=== PATIENT | female | born 1985 | race Caucasian/White ===

== ENCOUNTER 2020-01-31 01:29 | Emergency (ER) | payer SELFPAY ==
[2020-01-31 01:47] VITALS: BP 131/88; BP 136/80; PULSE 108; PULSE 120; RESP 16; TEMP 35.9; O2SAT 98; BMI 44.9
--- NOTE | 2020-01-31 02:10 | PC.NURSE ---
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 pt states she got into a small argument with spouse and feels better now. states she will have a ride home
--- NOTE | 2020-01-31 02:21 | ED_ITS ---
HPI - Alcohol General Chief Complaint: ETOH/Substance Use Stated Complaint: ETOH Time Seen by Provider: 01/31/20 02:21 Source: EMS Mode of arrival: ambulatory History of Present Illness HPI narrative: 34-year-old female brought to the emergency room after not acting right drinking alcohol. Patient in the emergency room states has no complaints no nausea no vomiting no diarrhea no chest pain. Related Data Allergies Allergy/AdvReac Type Severity Reaction Status Date / Time No Known Allergies Allergy Unverified 01/31/20 01:52 [No Known Allergies*] Review of Systems Review of Systems: Constitutional : No Weight loss, No Fever, No Chills, No Night Sweats, No Fatigue, No Malaise ENT/Mouth : No Hearing loss, No Ear Pain, No Nasal Congestion, No Sinus Pain, No Hoarseness, No sore throat, No Rhinorrhea, No Swallowing Difficulty Eyes: No Eye Pain, No Swelling, No Redness, No Foreign Body, No Discharge, No Vision Changes Cardiovascular : No Chest Pain, No SOB, No Dyspnea on Exertion, No Orthopnea, No Edema, No Palpitations Respiratory : No Cough, No Sputum, No Wheezing, No Smoke Exposure, No Dyspnea Gastrointestinal : No Nausea, No Vomiting, No Diarrhea, No Constipation, No abdominal Pain, No Hematochezia, No Melena Genitourinary : no irregular bleeding, No Dysuria, No Urinary Frequency, No Hematuria, No Urinary Incontinence, No Urgency, No Flank Pain, No Urinary Flow Changes, No Hesitancy Musculoskeletal : No joint pain, No Myalgias, No Joint Swelling Skin : No Skin Lesions, No rash Neuro : No Weakness, No Numbness, No Paresthesias, No Loss of Consciousness, No Dizziness, No Headache Psych : No Anxiety/Panic, No Depression, No SI/HI/AH/VH, No Social Issues, Heme/Lymph: No Bruising, No Bleeding,No Lymphadenopathy Endocrine : No Polyuria, No Polydipsia, No Temperature Intolerance [facility] Past Medical History Medical History GERD (gastroesophageal reflux disease) Family History Family History (Updated 01/31/20 @ 05:18 by Jacob Fischer DO) Other Family history non-contributory Social History Social History Advance Directives: No Advance Directives Information Provided: No Physical Exam Vital Signs and I&O and Narrative: Vital Signs and I&O: Vital Signs Temp 96.6 F L 01/31/20 01:47 Pulse 108 H 01/31/20 01:47 Resp 16 01/31/20 01:47 BP 131/88 01/31/20 01:47 Pulse Ox 98 01/31/20 01:47 Intake & Output 01/30/20 01/30/20 01/31/20 06:59 18:59 06:59 Weight 104.326 kg Body Mass Index 44.9 vital signs reviewed vital signs reviewed Appearance: Alert. Oriented X3. No acute distress. Eyes: Pupils equal, round and reactive to light. ENT: Pharynx normal. Neck: Normal inspection. Neck supple. No lymph nodes noted. No crepitus CVS: Normal heart rate and rhythm. Pulses normal. Normal S1 and S2 Respiratory: No respiratory distress. Breath sounds normal. No Wheezing. No rales Abdomen: Soft and nontender. No rigidity. No distention. good BS x4 Skin: Skin warm and dry. Normal skin color. Normal skin turgor. Extremities: No lower extremity edema. Neurovascular intact to all extremities. No Lacerations. No Rash Neuro: Oriented X 3. No motor deficit. No sensory deficit. Moving all extermities. No slurred speech. Course Course Course Narrative: upon arrival to the emergency department patient want to leave. Patient was alert oriented x3. Not intoxicated. Walking without assistance. Tolerating p.o. intake. Patient did have a ride home however patient did not want wait for paperwork and eloped Discharge Plan Discharge Clinical Impression: Alcoholic intoxication Patient Disposition: Elopement Referrals: [facility] [Provider Group] - 2 days Interventions: ED Discharge Assessment Last Done: 01/31/20 05:34 Discharge Date/Time: 01/31/20 05:37
== END 2020-01-31 05:37 | disposition left against medical advice (07) ==
PROVIDERS: Emergency Provider Emergency Medicine
DX: F10.129 Alcohol abuse with intoxication, unspecified (principal); Y90.9 Presence of alcohol in blood, level not specified; Z71.41 Alcohol abuse counseling and surveillance of alcoholic
CPT/HCPCS: 99283; 99284

== ENCOUNTER 2022-06-26 12:48 | Outpatient (REF) | payer MEDICAID, SELFPAY | END 2022-06-26 12:49 | disposition home or self-care (01) | LOC: HO.HOSX 12:48 | PROVIDERS: Visit Provider Physician Assistant | DX: Z13.89 Encounter for screening for other disorder (principal) ==

== ENCOUNTER 2022-07-03 15:58 | Outpatient (REF) | payer MEDICAID, SELFPAY | END 2022-07-03 15:59 | disposition home or self-care (01) | LOC: HO.HOSX 15:58 | PROVIDERS: Visit Provider Physician Assistant | DX: Z13.89 Encounter for screening for other disorder (principal) ==

== ENCOUNTER 2024-07-12 12:06 | Emergency (ER) | payer MEDICAID, SELFPAY ==
--- NOTE | ~2024-07-12 | CT_ITS ---
CLINICAL HISTORY: right flank pain. CT abdomen and pelvis without contrast Comparison: None Findings: No consolidation or effusion. And axial image 75 and coronal image 54, there is a tiny calculus in the region of the right ureterovesicular junction which may be within the ureter. This is not definitive. There is no hydronephrosis bilaterally. No renal calculus. The unenhanced liver, spleen, gallbladder, adrenal glands and pancreas are unremarkable No bowel obstruction, free air or abscess. Normal appendix. Uterus and adnexa are within normal limits. 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 No significant anterolisthesis of L5 with respect to S1 Impression: There is a tiny calculus within the pelvis in the region of the right ureterovesicular junction which may be within the ureter however there is no significant hydronephrosis identified. Otherwise no acute process. 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
--- NOTE | ~2024-07-12 | XR_ITS ---
CLINICAL HISTORY: cough 1 view chest x-ray Comparison: CR/RI/SR - XR CHEST 2V - 01/19/24 17:31 EDT Findings: No consolidation or effusion. Mild elevation of the left hemidiaphragm. No consolidative process. Normal size heart. No acute fracture. IMPRESSION: Mildly elevated left hemidiaphragm. This document has been electronically signed by: Dilcia Snyder MD on 07/12/2024 14:54:51
[2024-07-12 12:08] VITALS: BP 149/107; PULSE 111; RESP 20; TEMP 37; O2SAT 99; BMI 24.6
--- NOTE | 2024-07-12 12:09 | ED_ITS ---
HPI - Abdominal Pain General Chief Complaint: Abdominal Pain Stated Complaint: abd pain, back pain Time Seen by Provider: 07/12/24 13:44 Source: patient, family and senior director creative services Mode of arrival: ambulatory Limitations: no limitations History of Present Illness ED Provider: DR. Pizano HPI narrative: 38-year-old female came in for evaluation abdominal pain x4 days pain is epigastric and lower abdomen radiates to both flank area, no nausea, no vomiting, normal bowel movement, passing flatus, never had intra-abdominal surgery, no dysuria, no frequency urination, no hematuria, no exposure to a sick contacts. Patient also has been complaining coughing, and dizziness. Related Data Previous Rx's ?Medication ?Instructions ?Recorded ciprofloxacin HCl 500 mg tablet 500 mg PO BID Foot puncture wound 06/08/22 (Cipro) 14 days #28 tabs cyclobenzaprine 10 mg tablet 10 mg PO Q8H #14 tabs 06/08/22 naproxen 500 mg tablet 500 mg PO BID PRN pain #14 tabs 06/08/22 albuterol sulfate 2.5 mg/3 mL 2.5 mg (3 mL) inhalation Q4H PRN 06/11/22 (0.083 %) solution for nebulization shortness of breath or wheezing #75 mL albuterol sulfate 90 mcg/actuation 2 puff inhalation Q4-6H PRN 06/11/22 aerosol inhaler shortness of breath or wheezing #8.5 grams benzonatate 100 mg capsule 100 mg PO TID PRN cough #14 caps 06/11/22 doxycycline hyclate 100 mg tablet 100 mg PO BID 7 days #14 tabs 06/11/22 prednisone 20 mg tablet 60 mg (3 x 20 mg) PO DAILY 5 days 06/11/22 #15 tabs ibuprofen 600 mg tablet 600 mg PO Q6H PRN fever or pain 08/12/22 #20 tabs Allergies Allergy/AdvReac Type Severity Reaction Status Date / Time No Known Allergies Allergy Unverified 07/12/24 12:13 [No Known Allergies*] Review of Systems Review of Systems All other systems are reviewed and are negative Constitutional: Reports as per HPI and Reports no additional constitutional complaints Eyes: Reports as per HPI and Reports no additional eye complaints Reports system reviewed and no additional complaints, except as documented Cardiovascular: Reports as per HPI and Reports no additional cardiovascular complaints Respiratory: Reports as per HPI and Reports no additional respiratory complaints Gastrointestinal: Reports as per HPI and Reports no additional gastrointestinal complaints Genitourinary: Reports no additional female genitourinary complaints Musculoskeletal: Reports no additional musculoskeletal complaints Skin/Breast: Reports system reviewed and no additional complaints, except as docu Psychiatric: Reports no additional psychiatric complaints Endocrine: Reports no additional endocrine complaints Hematologic/Lymphatic: Reports no additional hematologic/lymphatic complaints Allergic/Immunologic: Reports no additional allergic/immunologic complaints Reports system reviewed and no additional complaints, except as documented and Reports Abnormal speech present [facility] Past Medical History Medical History GERD (gastroesophageal reflux disease) Family History Family History Other Family history non-contributory Physical Exam ED Vital Signs: Vital Signs - 24 hr 07/12/24 12:08 07/12/24 14:04 Temperature 98.6 F Pulse Rate 111 H 86 Respiratory Rate 20 18 Blood Pressure 149/107 H 134/87 Pulse Oximetry 99 99 Oxygen Delivery Method Room Air Room Air BMI result Body Mass Index 24.6 Vital signs have been reviewed and appear to be correct. Blood pressure elevated. Heart rate normal. Respiratory rate normal. Temperature normal. Oxygen saturation normal. Appearance: Alert. Oriented X3. No acute distress. Head: Normal external exam. Normocephalic. Atraumatic. No Redd signs noted. No raccoon eyes noted Eyes: PERRLA. EOMI. Conjunctiva and sclera normal. Eyelids normal. ENT: TM's Normal. Pharynx normal. Uvula midline. Moist mucous membranes. No trismus noted. No drooling noted. No muffled voice noted. Neck: Normal inspection. Neck supple. FROM. No adenopathy. Thyroid Normal. No meningeal signs. No neck mass noted. CVS: Normal heart rate and rhythm. Heart sound normal. No murmurs noted. Pulses normal throughout. Respiratory: No respiratory distress. Painless inspiration. Breath sounds normal. No wheezes/rales/rhonchi noted. Chest nontender. No accessory muscle usage noted or decreased air movement noted. Abdomen: Soft and nontender. Bowel sounds normal in all 4 quadrants. No distention noted. No organomegaly noted. No visible injury noted. Back: No CVA tenderness. Full range of motion noted. Skin: Skin warm and dry. Normal skin color. Normal skin turgor. No rashes/lesions/lacerations noted. Extremities: No lower extremity edema. Extremities exhibit normal range of motion. Extremities nontender. Neuro: Oriented X 3. Cranial nerve exam: II-XII are grossly intact No motor deficit. No sensory deficit. Reflexes normal. Course Course Course Narrative: This is an RME performed by Roddy Shannon CNP: Additional HPI, ROS, PE not included below will be deferred to primary provider. patient is a 38-year-old female who presents emergency department for evaluation of abdominal pain endorses epigastric, mid lower abdomen right lower quadrant pain as well as diffuse lower back pain. Pain has been constant over the past 3 days. Associated nausea but no vomiting. No bowel movement over the past 3 days. Endorses associated dysuria. Admits to a recent vaginal yeast infection approximately 2 months ago. denies possibility for , LMP last week. Plan: Serum labs, urinalysis Reevaluation(s) Reevaluation #1: CT is questioning small right UVJ stone with no hydro or significant obstruction, patient can be discharged home with instruction of drinking plenty of fluids and NSAIDs p.r.n. pain. Time: 16:00 Medical Decision Making Differential Diagnosis Differential Diagnoses: The differential diagnosis associated with the presentation includes (Pneumonia, pneumothorax, pulmonary embolism acute appendicitis, kidney stone, UTI, pyelonephritis, , gastritis.) Admission/Observation Consideration of admission/observation: Escalation of care including admission/observation considered Lab Data MDM Lab Attestation statement: I reviewed the patient's lab results. 07/12/24 12:21 07/12/24 12:21 Labs: Lab Results 07/12/24 07/12/24 Range/Units 12:21 14:05 WBC 10.8 (4.8-10.8) X10*3/uL RBC 5.14 (4.20-5.50) X10*6/uL Hgb 14.6 (12.0-16.0) g/dl Hct 42.5 (37.0-47.0) % MCV 82.7 (80.0-98.0) fL MCH 28.4 (27.0-33.0) pg MCHC 34.4 (31.0-35.0) g/dl RDW 14.0 (11.0-16.0) % Plt Count 514 H (160-400) X10*3/uL MPV 8.7 L (9.4-12.3) fL Immature Gran % (Auto) 0.3 (0.0-0.4) % Neut % (Auto) 53.3 (45-73) % Lymph % (Auto) 39.4 (20-40) % [place] % (Auto) 5.4 (2-11) % Eos % (Auto) 0.9 (0-4) % Baso % (Auto) 0.7 (0-2) % Lymph # (Auto) 4.3 (1.2-4.9) X10*3/uL [place] # (Auto) 0.6 (0.1-1.2) X10*3/uL Eos # (Auto) 0.1 (0.0-0.4) X10*3/uL Baso # (Auto) 0.1 (0.0-0.2) X10*3/uL Abs Immat Gran (auto) 0.03 (0.00-0.03) X10*3/uL Absolute Neuts (auto) 5.8 (2.0-8.3) x10*3/uL Absolute Nucleated RBC 0.000 (0.0-0.012) X10*3/uL Nucleated RBC % (auto) 0.0 (0.0-0.2) /100WBC D-Dimer High Sensitivty < 150 NG/ML Sodium 134 L (135-145) mmol/L Potassium 4.1 (3.3-5.1) mmol/L Chloride 104 (96-108) mmol/L Carbon Dioxide 22 (22-29) mmol/L Anion Gap 12 (12-20) BUN 8 L (9-16) mg/dL Creatinine 0.65 (0.5-1.4) mg/dL Estim Creat Clear Calc 107.7 Estimated GFR > 60 Random Glucose 151 H (60-115) mg/dL Calcium 9.3 (8.4-10.2) mg/dL Total Bilirubin 0.2 (0.0-1.0) mg/dL AST 12 (5-31) U/L ALT 12 (0-31) U/L Alkaline Phosphatase 57 (39-117) U/L Total Protein 8.5 H (6.5-8.0) g/dL Albumin 4.5 (3.5-5.0) g/dL Lipase 37 (8-78) U/L Beta HCG, Quant < 2 mIU/mL Urine Color Yellow Urine Appearance Clear Urine pH 5.5 (5.0-9.0) Ur Specific [place] 1.015 (1.005-1.025) Urine Protein Negative (Neg-Trace) mg/dL Urine Glucose (UA) Negative (Negative) mg/dL Urine Ketones Negative (Negative) mg/dL Urine Blood Trace H (Negative) Urine Nitrite Negative (Negative) Ur Leukocyte Esterase Negative (Negative) Urine RBC 0-2 (0-2) /HPF Urine WBC 0-5 (0-5) /HPF Ur Squamous Epith Cells 0-2 (0-2) /HPF Urine Bacteria None Seen (None Seen) Hyaline Casts 0-2 (0-2) /LPF Urine Test NEGATIVE (NEGATIVE) Independent Interpretation I performed an independent interpretation of an: CT Scan (Abdomen pelvis:There is a tiny calculus within the pelvis in the region of the right ureterovesicular junction which may be within the ureter however there is no significant hydronephrosis identified. Otherwise no acute process.) Radiology Impression Discussion of test interpretation with radiology: I have reviewed the radiologist's reading. Medications Administered Discontinued Medications Generic Name Dose Route Start Last Admin Trade Name Freq PRN Reason Stop Dose Admin Ibuprofen 600 mg 07/12/24 14:02 07/12/24 14:47 Ibuprofen 600 Mg Tablet PO 07/12/24 14:03 600 mg ONCE ONE Administration Oxycodone HCl 5 mg 07/12/24 14:02 07/12/24 14:47 Oxycodone Hcl Immed Release 5 Mg Tablet PO 07/12/24 14:03 5 mg ONCE ONE Administration Discharge Plan Discharge Clinical Impression: Renal colic, Calculus of kidney Patient Disposition: Home, Self-Care Instructions: Renal Colic (ED) Prescriptions: No Action doxycycline hyclate 100 mg tablet 100 mg PO BID 7 Days Qty: 14 0RF prednisone 20 mg tablet 60 mg PO DAILY 5 Days Qty: 15 0RF albuterol sulfate 90 mcg/actuation HFA aerosol inhaler 2 puff inhalation Q4-6H PRN (Reason: shortness of breath or wheezing) Qty: 8.5 0RF albuterol sulfate 2.5 mg /3 mL (0.083 %) solution for nebulization 2.5 mg inhalation Q4H PRN (Reason: shortness of breath or wheezing) Qty: 75 0RF benzonatate 100 mg capsule 100 mg PO TID PRN (Reason: cough) Qty: 14 0RF ciprofloxacin HCl [Cipro] 500 mg tablet 500 mg PO BID 14 Days Qty: 28 0RF naproxen 500 mg tablet 500 mg PO BID PRN (Reason: pain) Qty: 14 0RF cyclobenzaprine 10 mg tablet 10 mg PO Q8H Qty: 14 0RF ibuprofen 600 mg tablet 600 mg PO Q6H PRN (Reason: fever or pain) Qty: 20 0RF Referrals: Indira Becerra SHOE CUTTER [Primary Care Provider] - Print Language: British
[2024-07-12 12:25] LABS: MANUAL DIFF FLAG NO
[2024-07-12 12:29] LABS: Appearance Urine Clear; Color Urine Yellow; Glucose Urine UA Negative (Negative); Leukocyte Esterase Urine Negative (Negative); Nitrite Urine Negative (Negative); PH 5.5 (5.0-9.0); Specific Gravity - Urine 1.015 (1.005-1.025); UMIC TRIGGER UACC YES; Urine Blood Trace (Negative); Urine Ketones Negative (Negative); Urine Protein Negative (Neg-Trace)
[2024-07-12 12:34] LABS: Bacteria Urine None Seen (None Seen); Hyaline Casts Urine 0-2 /LPF (0-2); RBC Urine 0-2 /HPF (0-2); Squamous Epithelial Cell Urine 0-2 /HPF (0-2); WBC Urine 0-5 /HPF (0-5)
[2024-07-12 12:48] LABS: Alanine Aminotransferase 12 U/L (0-31); Albumin Level 4.5 g/dL (3.5-5.0); Alkaline Phosphatase 57 U/L (39-117); Anion Gap 12 (12-20); Aspartate Amino Transferase 12 U/L (5-31); Bilirubin Total 0.2 mg/dL (0.0-1.0); Blood Urea Nitrogen 8 mg/dL (9-16); Calcium 9.3 mg/dL (8.4-10.2); Carbon Dioxide 22 mmol/L (22-29); Chloride 104 mmol/L (96-108); Creatinine Clr Calc Pharmacy 107.7; Estimated Glomerular Filt Rate > 60; Glucose Random 151 mg/dL (60-115); Lipase 37 U/L (8-78); Potassium 4.1 mmol/L (3.3-5.1); Sodium 134 mmol/L (135-145); Total Protein 8.5 g/dL (6.5-8.0)
[2024-07-12 12:52] LABS: Basophils Absolute Auto 0.1 X10*3/uL (0.0-0.2); Basophils Percent Auto 0.7 % (0-2); Eosinophils Absolute Auto 0.1 X10*3/uL (0.0-0.4); Eosinophils Percent Auto 0.9 % (0-4); Hematocrit 42.5 % (37.0-47.0); Hemoglobin 14.6 g/dl (12.0-16.0); Imm Gran Abs Auto 0.03 X10*3/uL (0.00-0.03); Imm Gran Pct Auto 0.3 % (0.0-0.4); Lymphocytes Absolute Auto 4.3 X10*3/uL (1.2-4.9); Lymphocytes Percent Auto 39.4 % (20-40); Mean Corpuscular HGB Conc 34.4 g/dl (31.0-35.0); Mean Corpuscular Hemoglobin 28.4 pg (27.0-33.0); Mean Corpuscular Volume 82.7 fL (80.0-98.0); Mean Platelet Volume 8.7 fL (9.4-12.3); Monocytes Absolute Auto 0.6 X10*3/uL (0.1-1.2); Monocytes Percent Auto 5.4 % (2-11); Neutrophils Absolute Auto 5.8 x10*3/uL (2.0-8.3); Neutrophils Percent Auto 53.3 % (45-73); Platelet Count 514 X10*3/uL (160-400); Red Blood Count 5.14 X10*6/uL (4.20-5.50); White Blood Count 10.8 X10*3/uL (4.8-10.8)
[2024-07-12 14:04] VITALS: BP 134/87; PULSE 86; RESP 18; O2SAT 99
[2024-07-12 14:26] LABS: D Dimer High Sensitivity < 150 NG/ML
[2024-07-12 14:44] LABS: UPreg QC Valid YES; Urine Pregnancy NEGATIVE (NEGATIVE)
[2024-07-12] MEDS: Ibuprofen 600 MG TABLET PO (14:47)
[2024-07-12] MEDS: oxyCODONE HCl Immed Release 5 MG TABLET PO (14:47)
[2024-07-12 14:58] LABS: HCG Quantitative < 2 mIU/mL
[2024-07-12 16:03] VITALS: BP 128/85; PULSE 73; RESP 16; TEMP 36.8; O2SAT 97
[2024-07-12 16:12] VITALS: BP 128/85; PULSE 73; RESP 16; TEMP 36.8; O2SAT 97
== END 2024-07-12 16:13 | disposition home or self-care (01) ==
PROVIDERS: Nurse Practitioner Family; Physician Assistant; Emergency Provider Emergency Medicine; PCP Nurse Practitioner Family
DX: N20.0 Calculus of kidney (principal); R05.9 Cough, unspecified; R42 Dizziness and giddiness; Z79.899 Other long term (current) drug therapy
CPT/HCPCS: 36415; 71045; 74176; 80053; 81001; 81025; 83690; 84702; 85025; 85379; 99284

== ENCOUNTER → 2024-07-12 14:18 | Outpatient (BNV) | payer MEDICAID, SELFPAY | PROVIDERS: Emergency Provider Emergency Medicine; PCP Nurse Practitioner Family; Visit Provider Radiology Diagnostic Radiology | DX: N20.1 Calculus of ureter (principal); R05.9 Cough, unspecified | CPT/HCPCS: 71045; 74176 ==

== ENCOUNTER 2024-10-13 08:38 | Outpatient (REF) | payer MEDICAID, SELFPAY ==
--- OUTSIDE RECORDS SUMMARY | 2024-10-13 08:56 | XMS_ITS ---
Author Organization [employer] Address [address] [place] [address] Care Team Providers Care Spinner Continuous Name Role Phone Indira Becerra NP Primary Care Provider [phone] Rossana Ceja RN Unavailable [phone] CM Complex Status:Enrolled (Active) Start date:07/14/2024 Enrollment date:08/07/2024 Enrollment reason:ADT Feed Overview ED- Pt went to [facility] ED on 07/12/24. Case Team Name Relationship Phone Rossana Ceja RN(Responsible Staff) Registered Nurse [phone] Continued Care and Services Coordination
[2024-10-13 11:48] LABS: Alanine Aminotransferase 13 U/L (0-31); Albumin Level 4.5 g/dL (3.5-5.0); Alkaline Phosphatase 49 U/L (39-117); Anion Gap 14 (12-20); Aspartate Amino Transferase 14 U/L (5-31); Bilirubin Total 0.2 mg/dL (0.0-1.0); Blood Urea Nitrogen 8 mg/dL (9-16); Calcium 9.3 mg/dL (8.4-10.2); Carbon Dioxide 23 mmol/L (22-29); Chloride 107 mmol/L (96-108); Estimated Glomerular Filt Rate > 60; Glucose Random 132 mg/dL (60-115); Sodium 140 mmol/L (135-145); Total Protein 7.4 g/dL (6.5-8.0)
[2024-10-13 12:00] LABS: Estimated Average Glucose 134 mg/dL; Hemoglobin A1c % 6.3 % (<6.0)
[2024-10-13 12:05] LABS: HIV AB/AG Nonreactive (Nonreactive); HIV Num 1 0.05 S/CO (0.00-0.99); ~HepC Num1 0.16 S/CO (0.00-0.79); ~Hepatitis C Antibody Nonreactive (Nonreactive)
== END 2024-10-13 08:39 | disposition home or self-care (01) ==
LOC: HO.HHCL 08:38
PROVIDERS: PCP Nurse Practitioner Family; Visit Provider Nurse Practitioner Family
DX: Z00.00 Encounter for general adult medical examination without abnormal findings (principal); N94.9 Unspecified condition associated with female genital organs and menstrual cycle; R73.03 Prediabetes
CPT/HCPCS: 36415; 80053; 83036; 86803; 87389

== ENCOUNTER 2024-10-21 09:27 | Outpatient (REF) | payer MEDICAID, SELFPAY ==
--- OUTSIDE RECORDS SUMMARY | 2024-10-21 10:04 | XMS_ITS ---
Author Organization [employer] Address [address] [place] [address] Care Team Providers Care [facility] Cook Name Role Phone Indira Becerra NP Primary Care Provider [phone] Rossana Ceja RN Unavailable [phone] CM Complex Status:Enrolled (Active) Start date:07/14/2024 Enrollment date:08/07/2024 Enrollment reason:ADT Feed Overview ED- Pt went [place] [facility] [place] 07/12/24. Case Team Name Relationship Phone Rossana Ceja RN(Responsible Staff) Registered Nurse [phone] Continued Care and Services Coordination
== END 2024-10-21 09:28 | disposition home or self-care (01) ==
LOC: HO.MAMMO 09:27
PROVIDERS: PCP Nurse Practitioner Family; Visit Provider Nurse Practitioner Family
DX: Z12.31 Encounter for screening mammogram for malignant neoplasm of breast (principal)
CPT/HCPCS: 77063; 77067

== ENCOUNTER → 2024-10-21 09:45 | Outpatient (BNV) | payer MEDICAID, SELFPAY | PROVIDERS: PCP Nurse Practitioner Family; Visit Provider Internal Medicine | DX: Z12.31 Encounter for screening mammogram for malignant neoplasm of breast (principal) | CPT/HCPCS: 77063; 77067 ==

== ENCOUNTER 2024-10-26 21:44 | Emergency (ER) | payer MEDICAID, SELFPAY ==
--- NOTE | ~2024-10-26 | XR_ITS ---
CLINICAL HISTORY: cough 1 view chest x-ray. Comparison: CR - XR CHEST 1V - 07/12/24 14:26 EDT Findings: Small streaky opacity present over the lateral aspect of the mid right lung. No focal consolidation identified within the left lung. No pneumothorax or pleural effusion. [id number] elevation of the left hemidiaphragm. Heart size normal. Impression: 1. [id number] elevation of the left hemidiaphragm with a small linear opacity over the lateral aspect of the mid right lung which may represent atelectasis or minimal infectious/inflammatory infiltrates. This document has been electronically signed by: Urbano Marcum MD on 10/26/2024 23:32:00
[2024-10-26 21:52] VITALS: BP 136/93; PULSE 98; RESP 22; TEMP 37; O2SAT 97; BMI 21.4
[2024-10-26 22:11] LABS: MANUAL DIFF FLAG NO
[2024-10-26 22:12] LABS: Hematocrit 38.6 % (37.0-47.0); Hemoglobin 13.3 g/dl (12.0-16.0); Imm Gran Abs Auto 0.04 X10*3/uL (0.00-0.03); Imm Gran Pct Auto 0.3 % (0.0-0.4); Lymphocytes Absolute Auto 4.8 X10*3/uL (1.2-4.9); Mean Corpuscular HGB Conc 34.5 g/dl (31.0-35.0); Mean Corpuscular Hemoglobin 28.2 pg (27.0-33.0); Mean Corpuscular Volume 82.0 fL (80.0-98.0); NRBC Abs Auto 0.000 X10*3/uL (0.0-0.012); NRBC Pct Auto 0.0 /100WBC (0.0-0.2); Platelet Count 465 X10*3/uL (160-400); Red Blood Count 4.71 X10*6/uL (4.20-5.50); White Blood Count 13.9 X10*3/uL (4.8-10.8)
[2024-10-26 22:25] LABS: Alanine Aminotransferase 14 U/L (0-31); Albumin Level 4.5 g/dL (3.5-5.0); Alkaline Phosphatase 58 U/L (39-117); Anion Gap 13 (12-20); Aspartate Amino Transferase 13 U/L (5-31); Blood Urea Nitrogen 10 mg/dL (9-16); Calcium 9.0 mg/dL (8.4-10.2); Carbon Dioxide 23 mmol/L (22-29); Chloride 109 mmol/L (96-108); Creatinine Clr Calc Pharmacy 100.2; Estimated Glomerular Filt Rate > 60; Potassium 3.9 mmol/L (3.3-5.1); Sodium 141 mmol/L (135-145); Total Protein 7.5 g/dL (6.5-8.0)
[2024-10-26 22:29] LABS: IDNOW Serial# 6674DD1D; Strep A Nucleic Acid Negative (Negative)
[2024-10-26 22:50] LABS: Resp Syncy Virus RNA Qual PCR NEGATIVE (Negative); SARS COV2 PCR INHOUSE NEGATIVE (Negative)
[2024-10-26 22:55] VITALS: BP 135/87; PULSE 89; RESP 16; TEMP 36.8; O2SAT 97
--- NOTE | 2024-10-26 23:59 | PC.NURSE ---
pt c/o of sore throat- RN made MD aware- waiting for new med orders for throat pain.
--- NOTE | 2024-10-27 01:11 | ED_ITS ---
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 Yamileth Grant HPI Narrative: 38-year-old female with history of hypertension and diabetes presenting with cough, sinus congestion, sore throat, generalized malaise and fatigue ongoing for the last 24 hours or so. States she developed a tickling in her throat last night and developed severe sore throat and cough this morning. No sputum production. No reported fever. No known sick contacts or recent travel. No associated nausea, vomiting or diarrhea. Had been feeling well prior to this. Related Data Previous Rx's ?Medication ?Instructions ?Recorded ciprofloxacin HCl 500 mg tablet 500 mg PO BID Foot pun cture wound 06/08/22 (Cipro) 14 days #28 tabs cyclobenzaprine 10 mg tablet 10 mg PO Q8H #14 tabs naproxen 500 mg tablet 500 mg PO BID PRN pain #14 t abs 06/08/22 albuterol sulfate 2.5 mg/3 mL 2.5 mg (3 mL) inhalation Q4H PRN 06/11/22 (0.083 %) solution for nebulization shortness of breat h or wheezing #75 mL albuterol sulfate 90 mcg/actuation 2 puff inhalation Q 4-6H PRN 06/11/22 aerosol inhaler shortness of breath or wheez ing #8.5 grams benzonatate 100 mg capsule 100 mg PO TID PRN cough #14 caps 06/11/22 doxycycline hyclate 100 mg tablet 100 mg PO BID 7 days #14 tabs 06/11/22 prednisone 20 mg tablet 60 mg (3 x 20 mg) PO DAILY 5 days 06/11/22 #15 tabs ibuprofen 600 mg tablet 600 mg PO Q6H PRN fever or p ain 08/12/22 #20 tabs albuterol sulfate 90 mcg/actuation 2 inh inhalation Q4 H PRN shortness 10/27/24 breath activated powder inhaler of breath #1 ea azithromycin 250 mg tablet 250 mg PO DAILY 4 days #4 t abs 10/27/24 benzonatate 100 mg capsule 100 mg PO BID PRN cough 10 days 10/27/24 #20 caps prednisone 50 mg tablet 50 mg PO DAILY 5 days #5 tab s 10/27/24 Allergies Allergy/AdvReac Type Severity Reaction Status Date / Time No Known Allergies (No Known Allergy Verified 10/26/24 21:58 Allergies*) Review of Systems 2 Review of Systems: Yes all other systems are reviewed and are negative (As per HPI) [facility] Past Medical History Attestation statement: The following information was validated with the patient. [facility] Narrative: Hypertension, diabetes, chronic fatigue Source: old records reviewed Medical History GERD (gastroesophageal reflux disease) Family History Family History Other Family history non-contributory Social History Social History Smoked in Last 30 Days: Yes Use of substances other than those prescribed or required for medical reasons: No Advance Directives: No Advance Directives Information Provided: Yes Physical Exam 2 Vital Signs: Vital Signs: Last Vital Signs Temp 98.3 F 10/26/24 22:55 Pulse 84 10/27/24 01:20 Resp 18 10/27/24 01:20 BP 135/87 10/26/24 22:55 Pulse Ox 97 10/26/24 22:55 O2 Del Method Room Air 10/26/24 22:55 BMI result Body Mass Index 21.4 GENERAL: Ill-Appearing, appears uncomfortable. SKIN: Normal skin color for ethnicity, warm, dry, no rashes noted. HEENT: Normocephalic, atraumatic, no stridor, dry mucous membranes, posterior oropharynx is erythematous without exudates, dentition intact, EOMI, PERRLA. NECK: Soft, supple, full ROM, midline structures nontender, no step-offs, no deformities, no lymphadenopathy. CHEST: Heart regular rhythm, no murmurs, symmetric chest rise and fall. PULMONARY: Faint expiratory wheezes bilaterally, diminished at the bases, occasional bronchospastic cough, no respiratory distress i. ABDOMINAL: Soft, nondistended, nontender, positive bowel sounds in all quadrants. : Deferred. MUSCULOSKELETAL: Normal tone, full range of motion, no deformities, no peripheral edema. NEURO: Alert and oriented x3, CN II through XII intact, equal strength and sensation bilateral upper and lower extremities, no focal neurologic deficits. PSYCHIATRIC: Flat affect, fluid speech, good eye contact and appropriate demeanor. Medications Administered Discontinued Medications Generic Name Dose Route Start Last Admin Trade Name Sandra PRN Reason Stop Dose Admin Albuterol/Ipratropium 3 ml 10/27/24 01:09 10/27/24 01:20 Albuterol/Iprat 2.5/0.5mg 3 Ml Ampul.Neb INHALE 10/27/24 01:10 3 ml ONCE ONE Administration Medical Decision Making Medical Decision Making [facility] Narrative: Patient presents today with flu-like symptoms. Differential diagnosis includes influenza, coronavirus, pneumonia, upper respiratory infection, among others. Most importantly, this patient is not in any acute respiratory distress. They have normal oxygen levels at room air. I have discussed medication and other home therapies that will help the patient and have discussed strict return precautions. Instructed that symptoms may worsen and the patient might need re-evaluation or even hospitalization in the future, but did not show signs of this at the time of discharge. Differential Diagnosis Differential Diagnoses: The differential diagnosis associated with the presentation includes (As per above) Admission/Observation Consideration of admission/observation: Escalation of care including admission/observation considered Lab Data [facility] Lab Attestation statement: I reviewed the patient's lab results. 10/26/24 22:06 10/26/24 22:06 Labs: Lab Results 10/26/24 Range/Units 22:06 WBC 13.9 H (4.8-10.8) X10*3/uL RBC 4.71 (4.20-5.50) X10*6/uL Hgb 13.3 (12.0-16.0) g/dl Hct 38.6 (37.0-47.0) % MCV 82.0 (80.0-98.0) fL MCH 28.2 (27.0-33.0) pg MCHC 34.5 (31.0-35.0) g/dl RDW 14.3 (11.0-16.0) % Plt Count 465 H (160-400) X10*3/uL MPV 8.6 L (9.4-12.3) fL Immature Gran % (Auto) 0.3 (0.0-0.4) % Neut % (Auto) 58.2 (45-73) % Lymph % (Auto) 34.1 (20-40) % [place] % (Auto) 5.7 (2-11) % Eos % (Auto) 1.1 (0-4) % Baso % (Auto) 0.6 (0-2) % Lymph # (Auto) 4.8 (1.2-4.9) X10*3/uL [place] # (Auto) 0.8 (0.1-1.2) X10*3/uL Eos # (Auto) 0.2 (0.0-0.4) X10*3/uL Baso # (Auto) 0.1 (0.0-0.2) X10*3/uL Abs Immat Gran (auto) 0.04 H (0.00-0.03) X10*3/uL Absolute Neuts (auto) 8.1 (2.0-8.3) x10*3/uL Absolute Nucleated RBC 0.000 (0.0-0.012) X10*3/uL Nucleated RBC % (auto) 0.0 (0.0-0.2) /100WBC Sodium 141 (135-145) mmol/L Potassium 3.9 (3.3-5.1) mmol/L Chloride 109 H (96-108) mmol/L Carbon Dioxide 23 (22-29) mmol/L Anion Gap 13 (12-20) BUN 10 (9-16) mg/dL Creatinine 0.59 (0.5-1.4) mg/dL Estim Creat Clear Calc 100.2 Estimated GFR > 60 Random Glucose 137 H (60-115) mg/dL Calcium 9.0 (8.4-10.2) mg/dL Total Bilirubin 0.1 (0.0-1.0) mg/dL AST 13 (5-31) U/L ALT 14 (0-31) U/L Alkaline Phosphatase 58 (39-117) U/L Total Protein 7.5 (6.5-8.0) g/dL Albumin 4.5 (3.5-5.0) g/dL Influenza Type A (PCR) NEGATIVE (Negative) Influenza Type B (PCR) NEGATIVE (Negative) RSV RNA Qual (PCR) NEGATIVE (Negative) SARS-CoV-2 RNA (RT-PCR) NEGATIVE (Negative) S. pyogenes GrpA MUNIR Negative (Negative) Independent Interpretation I performed an independent interpretation of an: Plain X-Ray Interpretation: Left elevated hemidiaphragm, no significant infiltrate noted Radiology Impression Discussion of test interpretation with radiology: I have reviewed the radiologist's reading. Radiologist Impression: 1 view chest x-ray. Comparison: CR - XR CHEST 1V - 07/12/24 14:26 EDT Findings: Small streaky opacity present over the lateral aspect of the mid right lung. No focal consolidation identified within the left lung. No pneumothorax or pleural effusion. Wilq-mm-oxfjybor elevation of the left hemidiaphragm. Heart size normal. Impression: 1. Lewo-wo-deesripd elevation of the left hemidiaphragm with a small linear opacity over the lateral aspect of the mid right lung which may represent atelectasis or minimal infectious/inflammatory infiltrates. This document has been electronically signed by: Urbano Marcum MD on 10/26/2024 23:32:00 Chronic Conditions Patient?s care impacted by: Diabetes and Hypertension Discharge Plan Discharge Clinical Impression: Community acquired pneumonia, Cough due to bronchospasm Patient Disposition: Home, Self-Care Instructions: Community Acquired Pneumonia (ED) Prescriptions: New albuterol sulfate 90 mcg/actuation aerosol powdr breath activated 2 inh inhalation Q4H PRN (Reason: shortness of breath) Qty: 1 0RF azithromycin 250 mg tablet 250 mg PO DAILY 4 Days Qty: 4 0RF benzonatate 100 mg capsule 100 mg PO BID PRN (Reason: cough) 10 Days Qty: 20 0RF prednisone 50 mg tablet 50 mg PO DAILY 5 Days Qty: 5 0RF No Action doxycycline hyclate 100 mg tablet 100 mg PO BID 7 Days Qty: 14 0RF prednisone 20 mg tablet 60 mg PO DAILY 5 Days Qty: 15 0RF albuterol sulfate 90 mcg/actuation HFA aerosol inhaler 2 puff inhalation Q4-6H PRN (Reason: shortness of breath or wheezing) Qty: 8.5 0RF albuterol sulfate 2.5 mg /3 mL (0.083 %) solution for nebulization 2.5 mg inhalation Q4H PRN (Reason: shortness of breath or wheezing) Qty: 75 0RF benzonatate 100 mg capsule 100 mg PO TID PRN (Reason: cough) Qty: 14 0RF ciprofloxacin HCl [Cipro] 500 mg tablet 500 mg PO BID 14 Days Qty: 28 0RF naproxen 500 mg tablet 500 mg PO BID PRN (Reason: pain) Qty: 14 0RF cyclobenzaprine 10 mg tablet 10 mg PO Q8H Qty: 14 0RF ibuprofen 600 mg tablet 600 mg PO Q6H PRN (Reason: fever or pain) Qty: 20 0RF Print Language: Panamanian
[2024-10-27 01:20] VITALS: PULSE 84; RESP 18; O2SAT 98
[2024-10-27] MEDS: Albuterol/Iprat 2.5/0.5MG 3 ML AMPUL.NEB INHALE (01:20)
[2024-10-27 01:42] VITALS: BP 128/84; PULSE 88; RESP 16; TEMP 36.8; O2SAT 97
[2024-10-27 02:03] VITALS: BP 128/84; PULSE 88; RESP 16; TEMP 36.8; O2SAT 97
== END 2024-10-27 02:03 | disposition home or self-care (01) ==
PROVIDERS: Emergency Provider Emergency Medicine; PCP Nurse Practitioner Family
DX: J18.9 Pneumonia, unspecified organism (principal); J98.01 Acute bronchospasm; R06.02 Shortness of breath; R05.9 Cough, unspecified; J02.9 Acute pharyngitis, unspecified; Z03.818 Encounter for observation for suspected exposure to other biological agents ruled out
CPT/HCPCS: 71045; 80053; 85025; 87637; 87651; 94640; 99284

== ENCOUNTER → 2024-10-26 21:59 | Outpatient (BNV) | payer MEDICAID, SELFPAY | PROVIDERS: Emergency Provider Emergency Medicine; PCP Nurse Practitioner Family; Visit Provider Radiology Diagnostic Radiology | DX: J98.6 Disorders of diaphragm (principal); R91.8 Other nonspecific abnormal finding of lung field | CPT/HCPCS: 71045 ==

== ENCOUNTER 2024-10-28 01:27 | Inpatient (IN) | payer MEDICAID, SELFPAY ==
[2024-10-28] VITALS (12 sets, daily range): BP systolic 126–144; BP diastolic 73–87; PULSE 100–140; RESP 16–24; TEMP 36.8–37.3; O2SAT 91–96; BMI 28.3
--- NOTE | ~2024-10-28 | XR_ITS ---
CLINICAL HISTORY: shortness of breath 2 view chest x-ray Comparison: CR - XR CHEST 1V - 10/26/24 22:47 EDT Findings: The lungs are clear. Heart size is normal. No acute fracture. IMPRESSION: 1. No acute findings. This document has been electronically signed by: Addy Judge MD, PHD on 10/28/2024 02:54:01
--- NOTE | ~2024-10-28 | CT_ITS ---
CLINICAL HISTORY: dyspnea, hypoxia Exam: CTA chest with IV contrast, 3D postprocessing Comparison: CR - XR CHEST 2V - 10/28/24 02:29 EDT Findings: Suboptimal contrast bolus timing, moderate cardiac and mild respiratory motion blurring degraded diagnostic quality. Adequate opacification of the pulmonary arteries without filling defects, pulmonary embolism can be excluded to the proximal segmental pulmonary artery level. Pulmonary arteries are normal in caliber. Aorta is normal in caliber, no dissection, minimal atherosclerotic calcification. Heart size is normal. No pericardial effusion. No lymphadenopathy. Patent central airway. Unremarkable imaged lower neck, chest wall and upper abdomen. Bilateral upper lobe and left lower lobe patchy alveolar opacities, small patchy ground-glass opacities of the right lung base. No pleural effusion or pneumothorax. Unremarkable osseous structures. Impression: 1. Suboptimal exam. No acute pulmonary embolism, PE can be excluded to the proximal segmental pulmonary artery level. 2. Bilateral upper lobe, left greater than right lower lobe airspace disease, most likely pneumonia. This document has been electronically signed by: Jeanine Lee MD on 10/28/2024 08:12:14
[2024-10-28 02:19] LABS: Hematocrit 38.9 % (37.0-47.0); Hemoglobin 13.5 g/dl (12.0-16.0); Imm Gran Abs Auto 0.09 X10*3/uL (0.00-0.03); Imm Gran Pct Auto 0.4 % (0.0-0.4); Lymphocytes Absolute Auto 3.3 X10*3/uL (1.2-4.9); MANUAL DIFF FLAG NO; Mean Corpuscular HGB Conc 34.7 g/dl (31.0-35.0); Mean Corpuscular Hemoglobin 28.0 pg (27.0-33.0); Mean Corpuscular Volume 80.7 fL (80.0-98.0); NRBC Abs Auto 0.000 X10*3/uL (0.0-0.012); NRBC Pct Auto 0.0 /100WBC (0.0-0.2); Platelet Count 464 X10*3/uL (160-400); Red Blood Count 4.82 X10*6/uL (4.20-5.50); White Blood Count 22.9 X10*3/uL (4.8-10.8)
[2024-10-28 02:43] LABS: Alanine Aminotransferase 13 U/L (0-31); Albumin Level 4.7 g/dL (3.5-5.0); Alkaline Phosphatase 60 U/L (39-117); Anion Gap 15 (12-20); Aspartate Amino Transferase 15 U/L (5-31); Blood Urea Nitrogen 7 mg/dL (9-16); Calcium 9.2 mg/dL (8.4-10.2); Carbon Dioxide 19 mmol/L (22-29); Chloride 106 mmol/L (96-108); Creatinine Clr Calc Pharmacy 104.7; Estimated Glomerular Filt Rate > 60; Potassium 3.4 mmol/L (3.3-5.1); Sodium 137 mmol/L (135-145); Total Protein 7.8 g/dL (6.5-8.0)
[2024-10-28] MEDS: Albuterol Sulfate 7.5 MG, Albuterol Sulfate (0.083%) 2.5 MG 10 MG INHALE (04:40)
[2024-10-28] MEDS: Albuterol Sulfate 7.5 MG, Albuterol/Iprat 2.5/0.5MG 3 ML 3 ML INHALE (05:03)
--- NOTE | 2024-10-28 05:22 | ED_ITS ---
HPI - Sepsis General Chief Complaint: Upper Respiratory Symptoms Stated Complaint: Flu like Time Seen by Provider: 10/28/24 03:00 Source: patient, family and certified court/medical interpreter Mode of arrival: ambulatory Limitations: language barrier History of Present Illness ED Provider: Dr. Yamileth Grant HPI Narrative: 38-year-old female with history of hypertension and diabetes presenting with continued cough, productive of yellow sputum, shortness of breath, subjective fevers ongoing for the last few days or so. She was seen here yesterday for similar symptoms and diagnosed with pneumonia. Was sent home with a prescription for doxycycline and has taken 2 doses of this medication. Reports no improvement of symptoms and states that she feels worse. Describes substantial shortness of breath and dizziness with ambulation. No syncope. Admits to chest tightness and wheezing but no outright chest pain. Denies nausea, vomiting or diarrhea. Does have a poor appetite. Related Data Previous Rx's ?Medication ?Instructions ?Recorded ciprofloxacin HCl 500 mg tablet 500 mg PO BID Foot pun cture wound 06/08/22 (Cipro) 14 days #28 tabs cyclobenzaprine 10 mg tablet 10 mg PO Q8H #14 tabs naproxen 500 mg tablet 500 mg PO BID PRN pain #14 t abs 06/08/22 albuterol sulfate 2.5 mg/3 mL 2.5 mg (3 mL) inhalation Q4H PRN 06/11/22 (0.083 %) solution for nebulization shortness of breat h or wheezing #75 mL albuterol sulfate 90 mcg/actuation 2 puff inhalation Q 4-6H PRN 06/11/22 aerosol inhaler shortness of breath or wheez ing #8.5 grams benzonatate 100 mg capsule 100 mg PO TID PRN cough #14 caps 06/11/22 doxycycline hyclate 100 mg tablet 100 mg PO BID 7 days #14 tabs 06/11/22 prednisone 20 mg tablet 60 mg (3 x 20 mg) PO DAILY 5 days 06/11/22 #15 tabs ibuprofen 600 mg tablet 600 mg PO Q6H PRN fever or p ain 08/12/22 #20 tabs albuterol sulfate 90 mcg/actuation 2 inh inhalation Q4 H PRN shortness 10/27/24 breath activated powder inhaler of breath #1 ea azithromycin 250 mg tablet 250 mg PO DAILY 4 days #4 t abs 10/27/24 benzonatate 100 mg capsule 100 mg PO BID PRN cough 10 days 10/27/24 #20 caps prednisone 50 mg tablet 50 mg PO DAILY 5 days #5 tab s 10/27/24 Allergies Allergy/AdvReac Type Severity Reaction Status Date / Time No Known Allergies (No Known Allergy Verified 10/28/24 01:59 Allergies*) Review of Systems Review of Systems Yes all other systems are reviewed and are negative (As per HPI) Physical Exam Vital Signs: Last Vital Signs Temp 98.9 F 10/28/24 03:38 Pulse 135 H 10/28/24 05:59 Resp 24 H 10/28/24 05:59 BP 126/73 10/28/24 05:59 Pulse Ox 94 10/28/24 05:59 O2 Del Method Nasal Cannula 10/28/24 05:59 O2 Flow Rate 4 10/28/24 05:59 BMI result Body Mass Index 28.3 GENERAL: Ill-appearing, moderate respiratory distress. SKIN: Normal skin color for ethnicity, warm, dry, no rashes noted. HEENT: Normocephalic, atraumatic, no stridor, EOMI. NECK: Soft, supple, full ROM, midline structures nontender, no step-offs, no deformities, no lymphadenopathy. CHEST: Heart regular tachycardia, symmetric chest rise and fall. PULMONARY: Diffuse wheezes throughout, tachypnea, poor air movement bilaterally, moderate respiratory distress. ABDOMINAL: Soft, nontender, quiet bowel sounds in all quadrants. : Deferred. MUSCULOSKELETAL: Normal tone, full range of motion, no deformities, no peripheral edema. NEURO: Alert and oriented to person, CN II through XII intact, no focal neurologic deficits. PSYCHIATRIC: Anxious affect, appropriate demeanor. Discharge Plan Discharge Clinical Impression: Sepsis, Pneumonia, Acute hypoxemic respiratory failure Patient Disposition: Admitted As Inpatient Sepsis Event Note Evaluation Sepsis screening result: Possible Sepsis Risk Current stage of sepsis: sepsis Reason for ruling out sepsis: Fever, tachycardia, recent pneumonia diagnosis, elevated white blood cell count Possible source: pulmonary Focused Exam Vital signs: Vital Signs Temp Pulse Resp BP Pulse Ox O2 Del Method O2 Flow Rate 10/28/24 05:59 135 H 24 H 126/73 94 Nasal Cannula 4 10/28/24 05:56 140 H 24 H 131/76 91 L Room Air 10/28/24 05:03 106 H 18 10/28/24 04:42 104 H 18 10/28/24 03:38 98.9 F 108 H 20 127/85 96 Room Air 10/28/24 03:25 96 Room Air 10/28/24 01:57 99.2 F 125 H 24 H 140/87 H 95 Room Air Respiratory exam: Present prolonged expiratory phase, respiratory distress (Tachypnea) and wheezes Cardiovascular exam: tachycardia Capillary refill: < 2 Seconds Peripheral pulse strength: 4+ Bounding Peripheral pulse location: Radial Skin exam: normal turgor and pale Date exam was performed: 10/28/24 Time exam was performed: 07:07 Bedside Monitoring Bedside cardiovascular ultrasound performed: No Fluid responsiveness: fluid responsive Date bedside monitoring was performed: 10/28/24 Time bedside monitoring was performed: 07:08 [facility] Past Medical History [facility] Narrative: Hypertension, diabetes, asthma Source: old records reviewed Medical History GERD (gastroesophageal reflux disease) Family History Family History Other Family history non-contributory Social History Social History Smoked in Last 30 Days: Yes Use of substances other than those prescribed or required for medical reasons: No Advance Directives: No Advance Directives Information Provided: Yes Do you have a plan to hurt others: No Plan
--- NOTE | 2024-10-28 06:17 | PC.NURSE ---
pt put up to 2L NC and sats 93%, per MD to put up to 4L NC and notify RT. notified.
--- NOTE | 2024-10-28 06:32 | PM.IMHP ---
History of Present Illness Date of Service: 10/28/24 Attending physician on admission: Arslan Belcher Chief Complaint: Shortness of breath Kandy Boland is a 38 years old woman with past medical history significant for asthma presents to the emergency department complaining of worsening shortness on breath since yesterday associated with nasal congestion, cough, wheezing and headache. She denies sore throat. She denied chest pain, abdominal pain, nausea, vomiting, diarrhea, fever or chills. She denied contact with ill people or recent travel. She is a tobacco smoker. Smokes 10 cigarettes daily. She denied alcohol abuse or illicit drug use. Yesterday, she received the emergency department and was found to have pneumonia and was discharged to take a course of antibiotics, azithromycin. In the ED, she was found to have tachycardia and tachypnea. O2 sat room air is 91%. She was placed on supplemental oxygen. Temperature is 98.8 degrees and blood pressure is normal. Viral testing for COVID-19, influenza and RSV is negative. This leukocytosis of 22.9. Hemoglobin and platelets are unremarkable. Ganglia significant electrolyte imbalances. BUN is 7 and creatinine 0.63. Glucose is 130. LFTs are normal. CXR today showed no acute findings. ED tx: Cefepime 1 g IV, LR 2041 mL, vancomycin 1.5 g, ibuprofen 600 mg p.o., albuterol 7.5 x2, Solu-Medrol 125 mg IV Review of Systems Review of Systems: All 12 systems were reviewed and normal except as noted in HPI. COUNTS INCLUDE 234 BEDS AT THE [facility] Medical History GERD (gastroesophageal reflux disease) Family History Other Family history non-contributory Social History Smoked in Last 30 Days: Yes Use of substances other than those prescribed or required for medical reasons: No Advance Directives: No Advance Directives Information Provided: Yes Do you have a plan to hurt others: No Plan Meds Allergies Allergy/AdvReac Type Severity Reaction Status Date / Time No Known Allergies (No Known Allergy Verified 10/28/24 01:59 Allergies*) Active Medications: Current Medications Acetaminophen (Acetaminophen 325 Mg Tablet) 975 mg PO Q6H PRN PRN Reason: Pain, Mild 1-3,fever,headache Calcium Carbonate (Calcium Carbonate 750 Mg Tab.Chew) 750 mg PO Q4H PRN PRN Reason: Heartburn Enoxaparin Sodium (Enoxaparin Sodium 40 Mg/0.4 Ml Syringe) 40 mg SUBCUT Q24H [facility] Magnesium Hydroxide (Milk Of Magnesia 30 Ml Oral.Susp) 30 ml PO DAILY PRN PRN Reason: Constipation Melatonin (Melatonin 3 Mg Tablet) 6 mg PO BEDTIME PRN PRN Reason: Insomnia Methylprednisolone Sodium Succinate (Methylprednisolone Sod Succ 40 Mg Vial) 40 mg IVPUSH Q12H [facility] Pharmacy Consult (Consult Rx Vancomycin Dosing) 1 each MISCELLANE DAILY PRN PRN Reason: Consult order Sodium Chloride (0.9 % Sodium Chloride Flush 3 Ml Syringe) 3 ml IVFLUSH QSHIFT [facility] Physical Exam Vital Signs and Narrative: Vital Signs: Last Vital Signs Temp 98.9 F 10/28/24 03:38 Pulse 135 H 10/28/24 05:59 Resp 24 H 10/28/24 05:59 BP 126/73 10/28/24 05:59 Pulse Ox 94 10/28/24 05:59 O2 Del Method Nasal Cannula 10/28/24 05:59 O2 Flow Rate 4 10/28/24 05:59 BMI result Body Mass Index 28.3 Constitutional - Awake and Alert, No apparent distress. Pleasant. Cooperative. HEENT - PER, EOMI. Moist oral mucosa. Oropharynx normal. HEENT - tachycardic, normal rhythm Lungs - Normal lung expansion, Normal respiratory effort, No respiratory distress. Tachypnea. End expiratory wheezes. No rhonchi. No crackles. Abdomen - NT / ND; +BS; No rebound or guarding Extremities - no calf tenderness bilaterally, no swelling Musculoskeletal - Normal inspection, normal ROM Skin - Warm/Dry Neurological - Alert & oriented x3. Moving all extremities spontaneously. Normal speech. Psychological - Appropriate affect Results Labs 10/28/24 02:11 10/28/24 02:11 Labs: Laboratory Results - last 24 hr 10/28/24 02:11 MCV 80.7 MCH 28.0 MCHC 34.7 RDW 14.6 Plt Count 464 H MPV 8.7 L Immature Gran % (Auto) 0.4 Neut % (Auto) 78.8 H Lymph % (Auto) 14.2 L [place] % (Auto) 6.1 Eos % (Auto) 0.2 Baso % (Auto) 0.3 Lymph # (Auto) 3.3 [place] # (Auto) 1.4 H Eos # (Auto) 0.1 Baso # (Auto) 0.1 Abs Immat Gran (auto) 0.09 H Absolute Neuts (auto) 18.1 H Absolute Nucleated RBC 0.000 Nucleated RBC % (auto) 0.0 Anion Gap 15 Estim Creat Clear Calc 104.7 Estimated GFR > 60 Random Glucose 130 H Lactic Acid 2.0 Calcium 9.2 Total Bilirubin 0.2 Direct Bilirubin < 0.2 AST 15 ALT 13 Alkaline Phosphatase 60 Total Protein 7.8 Albumin 4.7 Assessment and Plan (1) Acute hypoxemic respiratory failure: Status: Acute (2) Acute asthma exacerbation: Qualifiers: Asthma severity: severe Asthma persistence: persistent Qualified Code(s): J45.51 - Severe persistent asthma with (acute) exacerbation Status: Acute Plan Kandy Boland is a 38 y/o woman admitted with Acute hypoxic respiratory failure secondary to acute asthma exacerbation, severe persistent, failed outpatient treatment. Admit to hospitalist service. Telemetry. Pulse oximetry. Supplemental O2 to keep O2 sats above 90%. Continue bronchodilator therapy and IV steroids. Empiric IV antibiotic therapy with doxycycline. Respiratory pathogen panel and chest CT scan pending. Tobacco dependence. Tobacco cessation education. DVT prophylaxis: Lovenox Code status: Full Patient will need hospitalization for at least 2 midnights for hypoxic respiratory failure due to acute asthma exacerbation treatment with supplemental oxygen, IV steroids, IV antibiotics and bronchodilator therapy after failing outpatient treatment. Quality Stroke Does the patient have a stroke diagnosis?: No VTE Prior VTE?: No VTE Risk Level:: Medical - moderate - high VTE Device Contraindication: Treatment Not Indicated VTE Drug Contraindication: N/A - Med Ordered
[2024-10-28] MEDS: iohexoL 350 MG/ML 100 ML INFUS..BTL 65 ML IV (06:53)
[2024-10-28] MEDS: guaiFENesin DM 200/20/10 ML 10 ML SYRUP PO ×4 (08:45→22:53)
[2024-10-28] MEDS: 0.9 % Sodium Chloride Flush 3 ML SYRINGE IVFLUSH ×2 (08:52→15:37)
[2024-10-28 11:17] LABS: Glucose, Whole Blood 238 mg/dL (60-115)
[2024-10-28] MEDS: Albuterol/Iprat 2.5/0.5MG 3 ML AMPUL.NEB INHALE ×3 (11:36→19:01)
[2024-10-28 11:42] LABS: Hemoglobin A1C 156.0249 umol/L; Total Hemoglobin (HGBA1C) 3540.4676 umol/L
[2024-10-28 12:20] LABS: Chlamydia pneumoniae PCR Not Detected (Not Detect.); Coronavirus 229E PCR Not Detected (Not Detect.); Coronavirus HKU1 PCR Not Detected (Not Detect.); Coronavirus NL63 PCR Not Detected (Not Detect.); Coronavirus OC43 PCR Not Detected (Not Detect.); RSV PCR Not Detected (Not Detect.); Rhino/Enterovirus PCR Detected (Not Detect.)
[2024-10-28 13:37] LABS: Influenza A H1 PCR Not Detected (Not Detect.); Influenza A H1-2009 PCR Not Detected (Not Detect.); Influenza A H3 PCR Not Detected (Not Detect.); SARS-CoV-2 PCR Not Detected (Not Detect.)
--- NOTE | 2024-10-28 13:40 | MHC.CM.PN ---
ASSESSMENT COMPLETED WITH HELP OF [employer]. PATIENT IS INDEPENDENT WITH ADLs. NO DME, PRIVATE PAY, OR VNA SERVICES. SHE REPORTS THAT FLAQUITO VAZQUEZ OF [facility] IS HER PCP. CM OFFICE AWARE. NO HCP ON FILE. PATIENT BELIEVES ONE IS AVAILABLE AT [facility]. COPY REQUESTED. SHE HOPES TO RETURN HOME WITH NO SERVICES AT TIME OF DC. PATIENT HAS AMPLE TRANSPORTATION
--- NOTE | 2024-10-28 16:05 | PHA.MEDREC ---
Pharmacy Consult ? Medication Reconciliation Pharmacy has completed the medication reconciliation.Spoke with patient via [employer] of [employer]. Patient had her bottle of Propranolol on her, takes omperazole OTC. Patient seen in ED on 10/27/24 and sent home with azithro, benzonatate, albuterol and prednisone.
[2024-10-28 17:41] LABS: Glucose, Whole Blood 185 mg/dL (60-115)
--- NOTE | 2024-10-28 19:23 | PM.EVENT ---
Event Note Date of Service: 10/28/24 Event Note: Patient seen and examined at bedside Patient is still short of breath has cough productive Of fever Physical exam and assessment and plan as per H and P. CTA shows possible pneumonia Continue nebs, steroids, antibiotics Time Spent With Patient Time: Total time managing care of this patient today ____ minutes.
[2024-10-28 23:06] LABS: Glucose, Whole Blood 162 mg/dL (60-115)
[2024-10-29] VITALS (9 sets, daily range): BP systolic 103–120; BP diastolic 63–78; PULSE 70–103; RESP 14–29; TEMP 36.2–37.4; O2SAT 93–100; BMI 27.5
[2024-10-29 04:26] LABS: Hematocrit 36.8 % (37.0-47.0); Hemoglobin 12.4 g/dl (12.0-16.0); Imm Gran Abs Auto 0.20 X10*3/uL (0.00-0.03); Imm Gran Pct Auto 0.6 % (0.0-0.4); Lymphocytes Absolute Auto 2.5 X10*3/uL (1.2-4.9); MANUAL DIFF FLAG SCAN; Mean Corpuscular HGB Conc 33.7 g/dl (31.0-35.0); Mean Corpuscular Hemoglobin 28.2 pg (27.0-33.0); Mean Corpuscular Volume 83.6 fL (80.0-98.0); NRBC Abs Auto 0.000 X10*3/uL (0.0-0.012); NRBC Pct Auto 0.0 /100WBC (0.0-0.2); Platelet Count 471 X10*3/uL (160-400); Red Blood Count 4.40 X10*6/uL (4.20-5.50); SCAN SMEAR FLAG 1
[2024-10-29 04:30] LABS: White Blood Count 32.2 X10*3/uL (4.8-10.8)
[2024-10-29 04:40] LABS: Anion Gap 15 (12-20); Blood Urea Nitrogen 7 mg/dL (9-16); Calcium 9.1 mg/dL (8.4-10.2); Carbon Dioxide 19 mmol/L (22-29); Chloride 109 mmol/L (96-108); Creatinine Clr Calc Pharmacy 129.4; Estimated Glomerular Filt Rate > 60; Potassium 3.8 mmol/L (3.3-5.1); Sodium 139 mmol/L (135-145)
[2024-10-29 07:23] LABS: Glucose, Whole Blood 182 mg/dL (60-115)
[2024-10-29] MEDS: Albuterol/Iprat 2.5/0.5MG 3 ML AMPUL.NEB INHALE ×4 (08:13→19:22)
[2024-10-29] MEDS: guaiFENesin DM 200/20/10 ML 10 ML SYRUP PO ×4 (08:37→22:16)
[2024-10-29] MEDS: Propranolol HCL LA 80 MG CAP.SA.24H PO (09:15)
[2024-10-29 12:08] LABS: Glucose, Whole Blood 115 mg/dL (60-115)
--- NOTE | 2024-10-29 15:46 | HO.PM.IMPN ---
Subjective Subjective Date of Service: 10/29/24 Interval History: pneumonia Review of Systems Shortness of breaths somewhat improving, leukocytosis trending up, no fever Physical Exam Vital Signs: Vital Signs: Last Vital Signs Temp 97.5 F 10/29/24 15:42 Pulse 82 10/29/24 15:42 Resp 16 10/29/24 15:42 BP 103/72 10/29/24 15:42 Pulse Ox 100 10/29/24 15:42 O2 Del Method Room Air 10/29/24 15:42 O2 Flow Rate 3 10/29/24 13:11 BMI result Body Mass Index 27.5 Appearance: Alert.? Oriented X3.? . cvs: rrr, [id number] , no murmur res: air entry seems fair ,diminshed left>right. abd: no rebound or guarding ,nt, bs present. ext pulses present , no cyanosis . neuro: axo3 , nonfocal. Objective Data Active Medications Acetaminophen (Acetaminophen 325 Mg Tablet) 975 mg PO Q6H PRN PRN Reason: Pain, Mild 1-3,fever,headache Last Admin: 10/28/24 22:52 Dose: 975 mg Documented By: XOCHILT Albuterol Sulfate (Albuterol Sulfate (0.083%) 2.5 Mg/3 Ml Vial.Neb) 2.5 mg INHALE Q2H PRN PRN Reason: Shortness of Breath/Wheezing Albuterol/Ipratropium (Albuterol/Iprat 2.5/0.5mg 3 Ml Ampul.Neb) 3 ml INHALE RQ4H WHILE AWAKE [facility] Last Admin: 10/29/24 15:24 Dose: 3 ml Documented By: FELIPE Benzonatate (Benzonatate 100 Mg Capsule) 100 mg PO BID PRN PRN Reason: Cough Benzonatate (Benzonatate 100 Mg Capsule) 100 mg PO TID [facility] Last Admin: 10/29/24 14:04 Dose: 100 mg Documented By: NIRU Calcium Carbonate (Calcium Carbonate 750 Mg Tab.Chew) 750 mg PO Q4H PRN PRN Reason: Heartburn Ceftriaxone Sodium (Ceftriaxone Sodium 1 Gm Vial) 1 gm IVPUSH Q24H [facility] Last Admin: 10/29/24 08:37 Dose: 1 gm Documented By: KELLI Dextrose (Dextrose 50 % 25 Gm/50 Ml Syringe) 25 gm IVPUSH Q15M PRN; Protocol PRN Reason: per Hypoglycemia Standing Ord. Enoxaparin Sodium (Enoxaparin Sodium 40 Mg/0.4 Ml Syringe) 40 mg SUBCUT Q24H [facility] Last Admin: 10/29/24 08:37 Dose: 40 mg Documented By: KELLI Glucose (Glucose Gel 15 Gm Gel..Gram.) 15 gm PO Q15M PRN; Protocol PRN Reason: per Hypoglycemia Standing Ord. Guaifenesin/Dextromethorphan (Guaifenesin Dm 200/20/10 Ml 10 Ml Syrup) 10 ml PO QID [facility] Last Admin: 10/29/24 13:50 Dose: 10 ml Documented By: NIRU Azithromycin 500 mg/ Sodium (Chloride) 250 mls @ 125 mls/hr IV Q24H [facility] Last Infusion: 10/29/24 11:06 Dose: Infused Documented By: KELLI Insulin Human Lispro (Insulin Lispro 100 Unit/Ml 3 Ml Vial) 0 unit SUBCUT QIDACHS [facility]; Protocol Last Admin: 10/29/24 12:05 Dose: Not Given Documented By: KELLI Non-Admin Reason: POC 115 Loratadine (Loratadine 10 Mg Tablet) 10 mg PO DAILY [facility] Last Admin: 10/29/24 09:47 Dose: 10 mg Documented By: KELLI Magnesium Hydroxide (Milk Of Magnesia 30 Ml Oral.Susp) 30 ml PO DAILY PRN PRN Reason: Constipation Melatonin (Melatonin 3 Mg Tablet) 6 mg PO BEDTIME PRN PRN Reason: Insomnia Last Admin: 10/28/24 22:52 Dose: 6 mg Documented By: XOCHILT Nicotine Polacrilex (Nicotine Polacrilex 2 Mg Gum) 2 mg BUCCAL Q2H PRN PRN Reason: Nicotine Cravings Omeprazole (Omeprazole 20 Mg Capsule.) 20 mg PO DAILY@0630 [facility] Last Admin: 10/29/24 07:29 Dose: 20 mg Documented By: KELLI Prednisone (Prednisone 20 Mg Tablet) 40 mg PO DAILY [facility] Propranolol HCl (Propranolol Hcl La 80 Mg Cap.Sa.24h) 80 mg PO DAILY [facility]; Protocol Last Admin: 10/29/24 09:15 Dose: 80 mg Documented By: KELLI Comments: BP 125/80 HR 120 Sodium Chloride (0.9 % Sodium Chloride Flush 3 Ml Syringe) 3 ml IVFLUSH QSHIFT [facility] Last Admin: 10/29/24 07:22 Dose: Not Given Documented By: KELLI Non-Admin Reason: Patient Asleep Labs 10/29/24 03:57 10/29/24 03:57 Labs: Laboratory Results - last 24 hr 10/28/24 10/28/24 10/29/24 17:36 23:02 03:57 MCV 83.6 MCH 28.2 MCHC 33.7 RDW 15.0 Plt Count 471 H MPV 9.1 L Immature Gran % (Auto) 0.6 H Neut % (Auto) 85.7 H Lymph % (Auto) 7.7 L Boyle % (Auto) 5.7 Eos % (Auto) 0.0 Baso % (Auto) 0.3 Lymph # (Auto) 2.5 Boyle # (Auto) 1.9 H Eos # (Auto) 0.0 Baso # (Auto) 0.1 Abs Immat Gran (auto) 0.20 H Absolute Neuts (auto) 27.6 H Absolute Nucleated RBC 0.000 Nucleated RBC % (auto) 0.0 Smear Tech's Comments VERIFIED Anion Gap 15 Estim Creat Clear Calc 129.4 Estimated GFR > 60 POC Glucose 185 H 162 H Random Glucose 119 H Calcium 9.1 10/29/24 10/29/24 07:19 12:04 MCV MCH MCHC RDW Plt Count MPV Immature Gran % (Auto) Neut % (Auto) Lymph % (Auto) Boyle % (Auto) Eos % (Auto) Baso % (Auto) Lymph # (Auto) Boyle # (Auto) Eos # (Auto) Baso # (Auto) Abs Immat Gran (auto) Absolute Neuts (auto) Absolute Nucleated RBC Nucleated RBC % (auto) Smear Tech's Comments Anion Gap Estim Creat Clear Calc Estimated GFR POC Glucose 182 H 115 Random Glucose Calcium Microbiology Microbiology Results: Microbiology 10/28/24 03:26 Blood Culture - Preliminary Blood - Venous No growth after 24 hours. 10/28/24 02:11 Blood Culture - Preliminary Blood - Venous No growth after 24 hours. Assessment and Plan (1) Pneumonia: Status: Acute (2) Sepsis: Status: Acute Assessment and Plan: 38 y/o woman admitted with Acute hypoxic respiratory failure secondary to acute asthma exacerbation, severe persistent, failed outpatient treatment, entero/rhino virus Uri. ct chest:Bilateral upper lobe, left greater than right lower lobe airspace disease, most likely pneumonia Supplemental O2 to keep O2 sats above 90%. Continue bronchodilator therapy and IV steroids. Empiric IV antibiotic therapy with doxycycline. Tobacco dependence. Tobacco cessation education. ongoing need :Acute hypoxic respiratory failure secondary to acute asthma exacerbation, severe persistent, failed outpatient treatment, entero/rhino virus Uri-need IV antibiotics, oxygen tapering, respiratory status is not optimal yet. Quality Stroke Does the patient have a stroke diagnosis?: No VTE Prior VTE?: No VTE Risk Level:: Medical - moderate - high VTE Device Contraindication: Treatment Not Indicated VTE Drug Contraindication: N/A - Med Ordered
[2024-10-29 16:05] LABS: Glucose, Whole Blood 131 mg/dL (60-115)
[2024-10-29] MEDS: 0.9 % Sodium Chloride Flush 3 ML SYRINGE IVFLUSH ×2 (17:40→22:19)
[2024-10-29 21:31] LABS: Glucose, Whole Blood 148 mg/dL (60-115)
[2024-10-30] VITALS (10 sets, daily range): BP systolic 100–118; BP diastolic 63–81; PULSE 76–95; RESP 18–20; TEMP 36.1–36.5; O2SAT 92–98
[2024-10-30] MEDS: Albuterol/Iprat 2.5/0.5MG 3 ML AMPUL.NEB INHALE ×4 (07:36→19:48)
[2024-10-30 07:39] LABS: Glucose, Whole Blood 121 mg/dL (60-115)
[2024-10-30] MEDS: guaiFENesin DM 200/20/10 ML 10 ML SYRUP PO ×4 (07:56→22:01)
[2024-10-30] MEDS: 0.9 % Sodium Chloride Flush 3 ML SYRINGE IVFLUSH ×3 (08:04→22:17)
[2024-10-30 09:11] LABS: Hematocrit 39.5 % (37.0-47.0); Hemoglobin 13.5 g/dl (12.0-16.0); Mean Corpuscular HGB Conc 34.2 g/dl (31.0-35.0); Mean Corpuscular Hemoglobin 28.0 pg (27.0-33.0); Mean Corpuscular Volume 81.8 fL (80.0-98.0); NRBC Abs Auto 0.000 X10*3/uL (0.0-0.012); NRBC Pct Auto 0.0 /100WBC (0.0-0.2); Platelet Count 461 X10*3/uL (160-400); Red Blood Count 4.83 X10*6/uL (4.20-5.50); White Blood Count 17.3 X10*3/uL (4.8-10.8)
--- NOTE | 2024-10-30 09:28 | P.CONPL_ITS ---
History of Present Illness History of Present Illness Consult date: 10/30/24 Chief complaint: Acute asthma exacerbation Narrative: This is an inpatient pulmonary consultation. The patient is a 38 years old woman with past medical history significant for asthma presents to the emergency department complaining of worsening shortness on breath since yesterday associated with nasal congestion, cough, wheezing and headache. She denies sore throat. She denied chest pain, abdominal pain, nausea, vomiting, diarrhea, fever or chills. She denied contact with ill people or recent travel. She is a tobacco smoker. Smokes 10 cigarettes daily. She denied alcohol abuse or illicit drug use. Yesterday, she received the emergency department and was found to have pneumonia and was discharged to take a course of antibiotics, azithromycin. I did personally review her CT scan of the chest demonstrating airspace disease still with pneumonia. Her respiratory viral panel was positive for enterovirus suggesting viral pneumonia but could have resulted in a postviral bacterial infection. The patient is currently on antibiotic coverage. She continues to have significant wheezing on exam. She still needs IV Solu- Medrol. Will reassess tomorrow. Review of Systems 2 Review of Systems: All other systems are reviewed and are negative Constitutional: Reports as per HPI and Reports no additional constitutional complaints Eyes: Reports as per HPI and Reports no additional eye complaints Reports system reviewed and no additional complaints, except as documented Cardiovascular: Reports as per HPI and Reports no additional cardiovascular complaints Respiratory: Reports as per HPI +wheezing , sob Gastrointestinal: Reports as per HPI and Reports no additional gastrointestinal complaints Genitourinary: Reports no additional female genitourinary complaints Musculoskeletal: Reports no additional musculoskeletal complaints Skin/Breast: Reports system reviewed and no additional complaints, except as docu Reports system reviewed and no additional complaints, except as documented and Reports Abnormal speech present [facility] Past Medical History Medical History GERD (gastroesophageal reflux disease) Family History Family History Other Family history non-contributory Social History Social History Household Members: Family Housing: Apartment Do you presently have visiting nurse or other home services: No Patient Tobacco Use Status: Current everyday Tobacco user Tobacco use type: Cigarette Cigarettes Per Day: 10 Second Hand Smoke Exposure: Yes service: No Meds Allergies Allergy/AdvReac Type Severity Reaction Status Date / Time No Known Allergies (No Known Allergy Verified 10/28/24 01:59 Allergies*) Active Medications: Current Medications Acetaminophen (Acetaminophen 325 Mg Tablet) 975 mg PO Q6H PRN PRN Reason: Pain, Mild 1-3,fever,headache Last Admin: 10/29/24 22:16 Dose: 975 mg Albuterol Sulfate (Albuterol Sulfate (0.083%) 2.5 Mg/3 Ml Vial.Neb) 2.5 mg INHALE Q2H PRN PRN Reason: Shortness of Breath/Wheezing Albuterol/Ipratropium (Albuterol/Iprat 2.5/0.5mg 3 Ml Ampul.Neb) 3 ml INHALE RQ4H WHILE AWAKE [facility] Last Admin: 10/30/24 07:36 Dose: 3 ml Benzonatate (Benzonatate 100 Mg Capsule) 100 mg PO BID PRN PRN Reason: Cough Benzonatate (Benzonatate 100 Mg Capsule) 100 mg PO TID [facility] Last Admin: 10/30/24 07:56 Dose: 100 mg Calcium Carbonate (Calcium Carbonate 750 Mg Tab.Chew) 750 mg PO Q4H PRN PRN Reason: Heartburn Ceftriaxone Sodium (Ceftriaxone Sodium 1 Gm Vial) 1 gm IVPUSH Q24H [facility] Last Admin: 10/30/24 07:57 Dose: 1 gm Dextrose (Dextrose 50 % 25 Gm/50 Ml Syringe) 25 gm IVPUSH Q15M PRN; Protocol PRN Reason: per Hypoglycemia Standing Ord. Enoxaparin Sodium (Enoxaparin Sodium 40 Mg/0.4 Ml Syringe) 40 mg SUBCUT Q24H [facility] Last Admin: 10/30/24 07:57 Dose: 40 mg Glucose (Glucose Gel 15 Gm Gel..Gram.) 15 gm PO Q15M PRN; Protocol PRN Reason: per Hypoglycemia Standing Ord. Guaifenesin/Dextromethorphan (Guaifenesin Dm 200/20/10 Ml 10 Ml Syrup) 10 ml PO QID [facility] Last Admin: 10/30/24 07:56 Dose: 10 ml Azithromycin 500 mg/ Sodium (Chloride) 250 mls @ 125 mls/hr IV Q24H [facility] Last Admin: 10/30/24 07:57 Dose: 125 mls/hr Insulin Human Lispro (Insulin Lispro 100 Unit/Ml 3 Ml Vial) 0 unit SUBCUT QIDACHS [facility]; Protocol Last Admin: 10/30/24 07:50 Dose: Not Given Loratadine (Loratadine 10 Mg Tablet) 10 mg PO DAILY [facility] Last Admin: 10/30/24 07:56 Dose: 10 mg Magnesium Hydroxide (Milk Of Magnesia 30 Ml Oral.Susp) 30 ml PO DAILY PRN PRN Reason: Constipation Melatonin (Melatonin 3 Mg Tablet) 6 mg PO BEDTIME PRN PRN Reason: Insomnia Last Admin: 10/29/24 22:17 Dose: 6 mg Nicotine Polacrilex (Nicotine Polacrilex 2 Mg Gum) 2 mg BUCCAL Q2H PRN PRN Reason: Nicotine Cravings Omeprazole (Omeprazole 20 Mg Capsule.Dr) 20 mg PO DAILY@06 [facility] Last Admin: 10/30/24 06:21 Dose: 20 mg Prednisone (Prednisone 20 Mg Tablet) 40 mg PO DAILY [facility] Last Admin: 10/30/24 07:56 Dose: 40 mg Propranolol HCl (Propranolol Hcl La 80 Mg Cap.Sa.24h) 80 mg PO DAILY [facility]; Protocol Last Admin: 10/29/24 09:15 Dose: 80 mg Sodium Chloride (0.9 % Sodium Chloride Flush 3 Ml Syringe) [facility] Last Admin: 10/30/24 08:04 Dose: 3 ml Home Medications ?Medication ?Instructions ?Recorded ?Confirmed ?Last Taken ?Type albuterol sulfate 90 mcg/actuation 2 puff inhalation Q 4H PRN Wheezing 10/28/24 10/28/24 10/27/24 History aerosol inhaler azithromycin 250 mg tablet 250 mg PO DAILY 10/28/2410/27/24 History benzonatate 100 mg capsule 100 mg PO BID PRN Cough 12/1510/28/24 10/27/24 History omeprazole 20 mg capsule,delayed 20 mg PO DAILY@0630 0 10/28/24 10/28/24 10/27/24 History release prednisone 50 mg tablet 50 mg PO DAILY 10/28/2412/1510/27/24 History propranolol 80 mg capsule,24 80 mg PO DAILY 10/28/24 0 10/28/24 10/27/24 History hr,extended release Physical Exam 2 Vital Signs: Vital Signs: Last Vital Signs Temp 97.7 F 10/30/24 07:39 Pulse 89 10/30/24 07:39 Resp 20 10/30/24 07:39 BP 107/79 10/30/24 07:39 Pulse Ox 94 10/30/24 07:39 O2 Del Method Room Air 10/30/24 07:39 O2 Flow Rate 2 10/30/24 04:00 BMI result Body Mass Index 27.5 Appearance: Alert.? Oriented X3.? . cvs: rrr, [id number] , no murmur res: dimished, prolonged exp phase, significant wheezing abd: no rebound or guarding ,nt, bs present. ext pulses present , no cyanosis . neuro: axo3 , nonfocal. Results Laboratory Findings 10/30/24 08:50 10/29/24 03:57 Abnormal lab findings: Abnormal Labs 10/28/24 10/28/24 10/28/24 02:11 08:16 11:14 WBC 22.9 H Hct Plt Count 464 H MPV 8.7 L Immature Gran % (Auto) Neut % (Auto) 78.8 H Lymph % (Auto) 14.2 L Rolette # (Auto) 1.4 H Abs Immat Gran (auto) 0.09 H Absolute Neuts (auto) 18.1 H Chloride Carbon Dioxide 19 L BUN 7 L POC Glucose 238 H Random Glucose 130 H Hemoglobin A1c % 6.2 H Entero/Rhino (PCR) Detected A 10/28/24 10/28/24 10/29/24 17:36 23:02 03:57 WBC 32.2 H* Hct 36.8 L Plt Count 471 H MPV 9.1 L Immature Gran % (Auto) 0.6 H Neut % (Auto) 85.7 H Lymph % (Auto) 7.7 L Rolette # (Auto) 1.9 H Abs Immat Gran (auto) 0.20 H Absolute Neuts (auto) 27.6 H Chloride 109 H Carbon Dioxide 19 L BUN 7 L POC Glucose 185 H 162 H Random Glucose 119 H Hemoglobin A1c % Entero/Rhino (PCR) 10/29/24 10/29/24 10/29/24 07:19 16:00 21:25 WBC Hct Plt Count MPV Immature Gran % (Auto) Neut % (Auto) Lymph % (Auto) Rolette # (Auto) Abs Immat Gran (auto) Absolute Neuts (auto) Chloride Carbon Dioxide BUN POC Glucose 182 H 131 H 148 H Random Glucose Hemoglobin A1c % Entero/Rhino (PCR) 10/30/24 10/30/24 07:36 08:50 WBC 17.3 H Hct Plt Count 461 H MPV 8.7 L Immature Gran % (Auto) Neut % (Auto) Lymph % (Auto) Rolette # (Auto) Abs Immat Gran (auto) Absolute Neuts (auto) Chloride Carbon Dioxide BUN POC Glucose 121 H Random Glucose Hemoglobin A1c % Entero/Rhino (PCR) Microbiology: Microbiology 10/28/24 03:26 Blood - Venous Blood Culture - Preliminary No growth after 48 hours. 10/28/24 02:11 Blood - Venous Blood Culture - Preliminary No growth after 48 hours. Assessment and Plan (1) Acute asthma exacerbation: Qualifiers: Asthma severity: severe Asthma persistence: persistent Qualified Code(s): J45.51 - Severe persistent asthma with (acute) exacerbation Status: Acute (2) Pneumonia: Status: Acute (3) Acute hypoxemic respiratory failure: Status: Acute Plan Increase IV solumedrol continue abx coverage respiratory therapy oxygen to keep pox>89% Procedures Date of Service Date of Service: 10/30/24
[2024-10-30] MEDS: Propranolol HCL LA 80 MG CAP.SA.24H PO (10:50)
[2024-10-30 11:28] LABS: Glucose, Whole Blood 112 mg/dL (60-115)
--- NOTE | 2024-10-30 16:43 | P.CDIM_ITS ---
PROVIDER RESPONSE TEXT: To clarify, the appropriate diagnosis supported by the clinical indicators: Other (explain): no sepsis QUERY TEXT: PHYSICIAN'S DOCUMENTATION REQUEST Date of Query: 10/30/2024 07:35 AM EDT Patient Name: Kandy Vallejo Admit Date: 10/28/2024 Dear Savita Stephens MD, A review of the medical record indicates additional documentation may be needed. Please review below and update the documentation accordingly. Documentation on progress note dated 10/29/24 within the Assessment and Plan Sepsis was included. Progress note dated 10/29/24 within the written Plan: Acute hypoxic respiratory failure secondary to acute asthma exacerbation, failed outpatient txt. Entero/Rhino virus URI. CT Chest: Bilateral upper lobe, left greater than right lower lobe airspace disease, most likely pneumonia. Supplemental O2, bronchodilator therapy and IV steroids, empiric IV antibiotic, doxycycline. WBC 32.8 RR 26 Temp wnl LA wnl HR 97 Sepsis Systemic manifestations of infection, with 2 or more SIRS criteria which include: Fever > 100.4?F or hypothermia < 96.8?F Leukocytosis - WBC > 12,000 or leukopenia, WBC < 4,000, or > 10% bands Tachycardia- > 90 beats/minute Tachypnea- RR > 20 breaths/minute or PaCO2 < 32mmHg Based on the above information and the recognized standard for sepsis, could you please clarify if this diagnoses is still accurate and reflective of the patient's condition to ensure quality of the medical record and if agree, possible to place this diagnosis within the body of the written Plan for consistency and clarity? Sepsis is/was present After study Sepsis has been ruled out Other (explain) Clinically unable to determine (explain) Thank you, Su Cage, CCS, CDIS Use of terms such as suspected, likely, concern for, or probable (associated with a specific diagnosis that is being evaluated, monitored, or treated as if it exists) are acceptable and can be coded in the inpatient setting, when documented at the time of discharge. Please use your independent medical judgment in providing your response. THIS QUERY IS PART OF THE PERMANENT MEDICAL RECORD
[2024-10-30 16:59] LABS: Glucose, Whole Blood 212 mg/dL (60-115)
--- NOTE | 2024-10-30 18:07 | HO.PM.IMPN ---
Subjective Subjective Date of Service: 10/30/24 Interval History: copd/pneumonia Review of Systems Shortness of breaths somewhat improving, leukocytosis trending up, no fever Review of Systems: Yes all other systems are reviewed and are negative Physical Exam Vital Signs: Vital Signs: Last Vital Signs Temp 97.0 F 10/30/24 16:00 Pulse 76 10/30/24 16:00 Resp 20 10/30/24 16:00 BP 104/69 10/30/24 16:00 Pulse Ox 95 10/30/24 16:00 O2 Del Method Room Air 10/30/24 16:00 O2 Flow Rate 2 10/30/24 04:00 BMI result Body Mass Index 27.5 Appearance: Alert.? Oriented X3.? . cvs: rrr, [id number] . res: air entry seems fair ,diminshed left>right. abd: no rebound or guarding ,nt, bs present. ext pulses present , no cyanosis . neuro: axo3 , nonfocal. Objective Data Active Medications Acetaminophen (Acetaminophen 325 Mg Tablet) 975 mg PO Q6H PRN PRN Reason: Pain, Mild 1-3,fever,headache Last Admin: 10/29/24 22:16 Dose: 975 mg Documented By: ANKUSH Albuterol Sulfate (Albuterol Sulfate (0.083%) 2.5 Mg/3 Ml Vial.Neb) 2.5 mg INHALE Q2H PRN PRN Reason: Shortness of Breath/Wheezing Albuterol/Ipratropium (Albuterol/Iprat 2.5/0.5mg 3 Ml Ampul.Neb) 3 ml INHALE RQ4H WHILE AWAKE [facility] Last Admin: 10/30/24 15:31 Dose: 3 ml Documented By: MARLENE Benzonatate (Benzonatate 100 Mg Capsule) 100 mg PO BID PRN PRN Reason: Cough Benzonatate (Benzonatate 100 Mg Capsule) 100 mg PO TID [facility] Last Admin: 10/30/24 14:39 Dose: 100 mg Documented By: NIRU Calcium Carbonate (Calcium Carbonate 750 Mg Tab.Chew) 750 mg PO Q4H PRN PRN Reason: Heartburn Ceftriaxone Sodium (Ceftriaxone Sodium 1 Gm Vial) 1 gm IVPUSH Q24H [facility] Last Admin: 10/30/24 07:57 Dose: 1 gm Documented By: NIRU Dextrose (Dextrose 50 % 25 Gm/50 Ml Syringe) 25 gm IVPUSH Q15M PRN; Protocol PRN Reason: per Hypoglycemia Standing Ord. Enoxaparin Sodium (Enoxaparin Sodium 40 Mg/0.4 Ml Syringe) 40 mg SUBCUT Q24H [facility] Last Admin: 10/30/24 07:57 Dose: 40 mg Documented By: NIRU Glucose (Glucose Gel 15 Gm Gel..Gram.) 15 gm PO Q15M PRN; Protocol PRN Reason: per Hypoglycemia Standing Ord. Guaifenesin/Dextromethorphan (Guaifenesin Dm 200/20/10 Ml 10 Ml Syrup) 10 ml PO QID [facility] Last Admin: 10/30/24 17:32 Dose: 10 ml Documented By: NIRU Azithromycin 500 mg/ Sodium (Chloride) 250 mls @ 125 mls/hr IV Q24H [facility] Last Infusion: 10/30/24 09:59 Dose: Infused Documented By: NIRU Insulin Human Lispro (Insulin Lispro 100 Unit/Ml 3 Ml Vial) 0 unit SUBCUT QIDACHS [facility]; Protocol Last Admin: 10/30/24 17:32 Dose: 4 unit Documented By: NIRU Loratadine (Loratadine 10 Mg Tablet) 10 mg PO DAILY [facility] Last Admin: 10/30/24 07:56 Dose: 10 mg Documented By: NIRU Magnesium Hydroxide (Milk Of Magnesia 30 Ml Oral.Susp) 30 ml PO DAILY PRN PRN Reason: Constipation Melatonin (Melatonin 3 Mg Tablet) 6 mg PO BEDTIME PRN PRN Reason: Insomnia Last Admin: 10/29/24 22:17 Dose: 6 mg Documented By: ANKUSH Methylprednisolone Sodium Succinate (Methylprednisolone Sod Succ 125 Mg/2 Ml Vial) 60 mg IVPUSH Q8H [facility] Last Admin: 10/30/24 17:32 Dose: 60 mg Documented By: NIRU Nicotine Polacrilex (Nicotine Polacrilex 2 Mg Gum) 2 mg BUCCAL Q2H PRN PRN Reason: Nicotine Cravings Last Admin: 10/30/24 12:36 Dose: 2 mg Documented By: NIRU Omeprazole (Omeprazole 20 Mg Capsule.) 20 mg PO DAILY@0630 [facility] Last Admin: 10/30/24 06:21 Dose: 20 mg Documented By: JORGE-RAVIN Propranolol HCl (Propranolol Hcl La 80 Mg Cap.Sa.24h) 80 mg PO DAILY [facility]; Protocol Last Admin: 10/30/24 10:50 Dose: 80 mg Documented By: NIRU Sodium Chloride (0.9 % Sodium Chloride Flush 3 Ml Syringe) 3 ml IVFLUSH QSHIFT [facility] Last Admin: 10/30/24 17:32 Dose: 3 ml Documented By: NIRU Labs 10/30/24 08:50 10/29/24 03:57 Labs: Laboratory Results - last 24 hr 10/29/24 10/30/24 10/30/24 21:25 07:36 08:50 MCV 81.8 MCH 28.0 MCHC 34.2 RDW 15.0 Plt Count 461 H MPV 8.7 L Absolute Nucleated RBC 0.000 Nucleated RBC % (auto) 0.0 POC Glucose 148 H 121 H 10/30/24 10/30/24 11:25 16:54 MCV MCH MCHC RDW Plt Count MPV Absolute Nucleated RBC Nucleated RBC % (auto) POC Glucose 112 212 H Microbiology Microbiology Results: Microbiology 10/28/24 03:26 Blood Culture - Preliminary Blood - Venous No growth after 48 hours. 10/28/24 02:11 Blood Culture - Preliminary Blood - Venous No growth after 48 hours. Assessment and Plan (1) Pneumonia: Status: Acute (2) Sepsis: Status: Acute Assessment and Plan: 38 y/o woman admitted with Acute hypoxic respiratory failure secondary to acute asthma exacerbation, severe persistent, failed outpatient treatment, entero/rhino virus Uri. ct chest:Bilateral upper lobe, left greater than right lower lobe airspace disease, most likely pneumonia Supplemental O2 to keep O2 sats above 90%. Continue bronchodilator therapy and IV steroids. Empiric IV antibiotic therapy with doxycycline. Everybody leukocytosis secondary to steroid use not sepsis. tachycardia is due to nebs not due to sepsis. Tobacco dependence. Tobacco cessation education. ongoing need :Acute hypoxic respiratory failure secondary to acute asthma exacerbation, severe persistent, failed outpatient treatment, entero/rhino virus Uri-need IV antibiotics, oxygen tapering, respiratory status is not optimal yet. Quality Stroke Does the patient have a stroke diagnosis?: No VTE Prior VTE?: No VTE Risk Level:: Medical - moderate - high VTE Device Contraindication: Treatment Not Indicated VTE Drug Contraindication: N/A - Med Ordered
[2024-10-30 22:13] LABS: Glucose, Whole Blood 157 mg/dL (60-115)
[2024-10-31] VITALS: BP 111/75; PULSE 86; RESP 20; TEMP 36.9; O2SAT 95
[2024-10-31 04:13] VITALS: BP 120/72; PULSE 75; RESP 18; TEMP 36.6; O2SAT 92
[2024-10-31 07:31] LABS: Glucose, Whole Blood 151 mg/dL (60-115)
[2024-10-31 07:35] VITALS: PULSE 76; RESP 18; O2SAT 92
[2024-10-31] MEDS: Albuterol/Iprat 2.5/0.5MG 3 ML AMPUL.NEB INHALE ×2 (07:35→12:18)
[2024-10-31 07:37] VITALS: BP 115/78; PULSE 83; RESP 18; TEMP 36.3; O2SAT 92
[2024-10-31] MEDS: Propranolol HCL LA 80 MG CAP.SA.24H PO (08:32)
[2024-10-31] MEDS: guaiFENesin DM 200/20/10 ML 10 ML SYRUP PO (08:32)
[2024-10-31] MEDS: 0.9 % Sodium Chloride Flush 3 ML SYRINGE IVFLUSH (08:32)
--- NOTE | 2024-10-31 11:38 | MHC.CM.PN ---
PER MD PT WILL BE MEDICALLY CLEARED FOR DC HOME SELF-CARE, PT WILL ARRANGE TRANSPORT
[2024-10-31 11:40] LABS: Glucose, Whole Blood 119 mg/dL (60-115)
--- NOTE | 2024-10-31 11:44 | PM.DS ---
DS: Providers Provider Date of Service: 10/31/24 Date of admission: 10/28/24 06:12 Date of discharge: 10/31/24 Primary care physician: DENISA Aparicio Consults: 10/29/24 09:34 Consult to Pulmonology Routine Consulting Provider: [facility] Reason for consultation: Pneumonia Has provider been notified: No Attending physician on discharge: Savita Stephens Discharging clinician: Savita Stephens DS: Diagnosis Discharge Diagnosis (1) Pneumonia: Status: Acute (2) Sepsis: Status: Acute DS: Summary Hospital Course Hospital Course: HPI: 38 years old woman with past medical history significant for asthma presents to the emergency department complaining of worsening shortness on breath since yesterday associated with nasal congestion, cough, wheezing and headache. She denies sore throat. She denied chest pain, abdominal pain, nausea, vomiting, diarrhea, fever or chills. She denied contact with ill people or recent travel. She is a tobacco smoker. Smokes 10 cigarettes daily. She denied alcohol abuse or illicit drug use. Yesterday, she received the emergency department and was found to have pneumonia and was discharged to take a course of antibiotics, azithromycin. In the ED, she was found to have tachycardia and tachypnea. O2 sat room air is 91%. She was placed on supplemental oxygen. Temperature is 98.8 degrees and blood pressure is normal. Viral testing for COVID-19, influenza and RSV is negative. This leukocytosis of 22.9. Hemoglobin and platelets are unremarkable. Ganglia significant electrolyte imbalances. BUN is 7 and creatinine 0.63. Glucose is 130. LFTs are normal. CXR today showed no acute findings. ED tx: Cefepime 1 g IV, LR 2041 mL, vancomycin 1.5 g, ibuprofen 600 mg p.o., albuterol 7.5 x2, Solu-Medrol 125 mg IV Hospital course: Patient was admitted to the hospital because acute hypoxemic respiratory failure secondary to asthma exacerbation, also found to have leukocytosis, in addition pneumonia on CT chest-patient was given oxygen, nebs, steroids, antibiotics blood cultures sent. In addition patient was seen by Pulmonary -adjusted steroids, and continued above management. With the above supportive care patient seems to be improved significantly, blood culture negative at 48 hour, leukocytosis improving no fever. Currently asymptomatic off oxygen. Patient will be going with p.o. antibiotics. In addition patient has new diabetes diagnosis with a hemoglobin A1c is 6 .2-patient requesting diabetic medication which is given. Please see below. Plan: Patient was strongly advised to abstain from smoking. Diabetic education given Patient will complete Ceftin 500 mg p.o. b.i.d. for 6 days, azithromycin 500 mg daily for 3 more days. Repeat chest imaging in 3-4 weeks to see resolution pneumonia. Prednisone taper-as prescribed(as recommended by pulm). Leukocytosis improving monitor CBC outpatient. Patient recent hemoglobin A1c was 6.2 requested for diabetic medication so added metformin 250 mg p.o. b.i.d. further management outpatient as per PCP. Monitor fingersticks closely at home. In addition patient is to follow up with PCP and Pulmonary outpatient. Above management discussed with the patient in detail length she understand and in agreement with the above plan, time spent 40 minute, all question answered. Staff was present during conversation. Above conversation done with the help of fireworks maker present. Time Attestation Total time managing care of this patient today: 40 mintues. Discharge Coordination Time (in mins): 40 Quality: Safe Use of Opioids Does Pt have an Active Cancer Diagnosis on the Problem List?: No Quality: Stroke Does the patient have a stroke diagnosis?: No Physical Exam Vital Signs: Vital Signs: Last Vital Signs Temp 97.3 F 10/31/24 07:37 Pulse 83 10/31/24 07:37 Resp 18 10/31/24 07:37 BP 115/78 10/31/24 07:37 Pulse Ox 92 10/31/24 07:37 O2 Del Method Room Air 10/31/24 07:37 O2 Flow Rate 2 10/31/24 00:00 BMI result Body Mass Index 27.5 Appearance: Alert.? Oriented X3.? . cvs: rrr, [id number] . res: air entry seems fair ,diminshed left>right. abd: no rebound or guarding ,nt, bs present. ext pulses present , no cyanosis . neuro: axo3 , nonfocal. DS: Data Data Completed and Pending Labs on day of discharge: Laboratory Results - last 24 hr 10/30/24 10/30/24 10/31/24 16:54 21:11 07:26 POC Glucose 212 H 157 H 151 H 10/31/24 11:35 POC Glucose 119 H Preliminary micro results at discharge 10/28/24 03:26 Blood Culture - Preliminary Blood - Venous No growth after 48 hours. 10/28/24 02:11 Blood Culture - Preliminary Blood - Venous No growth after 48 hours. Imaging Chest x-ray: My impression: chest Ct: Impression: 1. Suboptimal exam. No acute pulmonary embolism, PE can be excluded to the proximal segmental pulmonary artery level. 2. Bilateral upper lobe, left greater than right lower lobe airspace disease, most likely pneumonia. Discharge Plan Discharge Anticipated Discharge Date/Time: 10/31/24 11:30 Patient Disposition: Home, Self-Care Discharge Diagnosis: pneumonia,entero/rhino virus Uri. Referrals: Chriss Diamond FNP-C [Primary Care Provider, Internal Medicine] - 1 Week Discharge Medications: New nicotine (polacrilex) 2 mg Gum 2 mg buccal Q2H PRN (Reason: Nicotine Cravings) Qty: 30 0RF cefuroxime axetil 500 mg Tablet 500 mg PO Q12H Qty: 12 0RF azithromycin 500 mg Tablet 500 mg PO Q24H Qty: 3 0RF metformin 500 mg Tablet 250 mg PO BIDWM Qty: 180 0RF dextromethorphan-guaifenesin 10-100 mg/5 mL Syrup 10 ml PO QID Qty: 120 0RF prednisone 10 mg tablet See Taper PO DIRECTED Qty: 26 0RF Taper: Prednisone 40 mg daily for 2 Days and 0 Hour 30 mg daily for 3 Days and 0 Hour 20 mg daily for 3 Days and 0 Hour 10 mg daily for 3 Days and 0 Hour Rx Instructions: see taper instructions (DME) FreeStyle Lite Strips Strip Qty: 100 0RF Rx Instructions: Test four times a day or as directed. (DME) blood-glucose meter [FreeStyle Lite Meter] Kit Qty: 1 0RF Rx Instructions: As Directed alcohol swabs Pads, Medicated 1 pad TOPICAL QIDACHS Qty: 100 0RF Rx Instructions: Use four times a day or as directed. (DME) pen needle, diabetic 32 gauge x 1/4 needle Qty: 100 0RF Rx Instructions: Use four times a day or as directed. (DME) lancets [FreeStyle Lancets] 28 gauge misc Qty: 100 0RF Rx Instructions: Test four times a day or as directed. Continued benzonatate 100 mg Capsule 100 mg PO BID PRN (Reason: Cough) prednisone 50 mg Tablet 50 mg PO DAILY propranolol 80 mg capsule,extended release 24 hr 80 mg PO DAILY Rx Instructions: prescribed 10/27/24 x 5 days omeprazole 20 mg Capsule,Delayed Release(Dr/Ec) 20 mg PO DAILY@0630 albuterol sulfate 90 mcg/actuation Hfa Aerosol Inhaler 2 puff INHALATION Q4H PRN (Reason: Wheezing) Discontinued azithromycin 250 mg Tablet 250 mg PO DAILY Rx Instructions: prescribed 10/27/24 x 4 days Discharge Orders: Discharge Order (Routine); Ordered 10/31/24 Ordered By: Savita Stephens Diet: Advance to usual diet Activity on Discharge: As tolerated Stand Alone Forms: Patient Portal Discharge page Print Language: Ukrainian Other Ambulatory Orders: Basic Metabolic Panel (Routine) Timeframe: 1 Week Facility: [facility] - Location: Laboratory Ordered By: Savita Stephens Complete Blood Count no Diff (Routine) Timeframe: 1 Week Facility: [facility] - Location: Laboratory Ordered By: Savita Stephens Care Plan Goals: Patient was strongly advised to abstain from smoking. Diabetic education given Patient will complete Ceftin 500 mg p.o. b.i.d. for 6 days, azithromycin 500 mg daily for 3 more days. Repeat chest imaging in 3-4 weeks to see resolution pneumonia. Leukocytosis improving monitor CBC outpatient. Patient recent hemoglobin A1c was 6.2 requested for diabetic medication so added metformin 250 mg p.o. b.i.d. further management outpatient as per PCP. Monitor fingersticks closely at home. In addition patient is to follow up with PCP and Pulmonary outpatient. Health Concerns: As above. Plan of Treatment: As above. Assessment: As above.
[2024-10-31 11:59] VITALS: BP 120/83; PULSE 81; RESP 20; TEMP 36.8; O2SAT 92
[2024-10-31 12:18] VITALS: PULSE 86; RESP 20; O2SAT 89
== END 2024-10-31 12:00 | disposition home or self-care (01) | DRG 141 ==
LOC: HO.ED 03:18 → HO.EDOVER 06:27 → HO.IMC 10-29 11:25
PROVIDERS: Admitting Provider Internal Medicine; Emergency Provider Emergency Medicine; PCP Emergency Medicine; Visit Provider Internal Medicine
DX: J45.51 Severe persistent asthma with (acute) exacerbation (principal); J96.01 Acute respiratory failure with hypoxia; J18.9 Pneumonia, unspecified organism; F17.210 Nicotine dependence, cigarettes, uncomplicated; Z71.6 Tobacco abuse counseling; E11.9 Type 2 diabetes mellitus without complications; B97.10 Unspecified enterovirus as the cause of diseases classified elsewhere; B97.89 Other viral agents as the cause of diseases classified elsewhere; Z20.822 Contact with and (suspected) exposure to COVID-19; Z79.52 Long term (current) use of systemic steroids; Z79.84 Long term (current) use of oral hypoglycemic drugs; Z79.899 Other long term (current) drug therapy
CPT/HCPCS: 36415; 71046; 71275; 80048; 80076; 82947; 83036; 83605; 85025; 85027; 87040; 87633; 94640; 99285; J0456; J0692; J0696; J1271; J1650; J2919; J3374; J7120; Q9967

== ENCOUNTER → 2024-10-28 01:29 | Outpatient (BNV) | payer MEDICAID, SELFPAY | PROVIDERS: Emergency Provider Emergency Medicine; Visit Provider General Practice | DX: R06.00 Dyspnea, unspecified (principal); R09.02 Hypoxemia; R06.02 Shortness of breath | CPT/HCPCS: 71046; 71275 ==

== ENCOUNTER → 2024-10-28 06:12 | Outpatient (BNV) | payer MEDICAID, SELFPAY | PROVIDERS: Admitting Provider Internal Medicine; Emergency Provider Emergency Medicine; PCP Emergency Medicine; Visit Provider Hospitalist | DX: J45.51 Severe persistent asthma with (acute) exacerbation (principal); J18.9 Pneumonia, unspecified organism; J96.01 Acute respiratory failure with hypoxia | CPT/HCPCS: 99223 ==

== ENCOUNTER → 2024-10-28 06:12 | Outpatient (BNV) | payer MEDICAID, SELFPAY | PROVIDERS: Admitting Provider Internal Medicine; Emergency Provider Emergency Medicine; Visit Provider Internal Medicine | DX: J18.9 Pneumonia, unspecified organism (principal); A41.9 Sepsis, unspecified organism | CPT/HCPCS: 99223; 99231; 99232; 99499 ==

== ENCOUNTER 2024-11-07 08:58 | Outpatient (REF) | payer MEDICAID, SELFPAY ==
--- OUTSIDE RECORDS SUMMARY | 2024-11-07 09:03 | XMS_ITS | Encounter Summary ---
Author Organization [employer] Address [address] [place] [address] Care Team Providers Care Supervisor Marble Name Role Phone Indira Becerra NP Primary Care Provider [phone] Rossana Ceja RN Unavailable [phone] Reason for Visit * Reason Comments Pre-visit Planning HDF unscheduled. Encounter Details Date Type Department Care Team ([facility] Contact Info) Description 11/03/2024 Patient Outreach [facility] [address] [place], [place] [id number] Indira Becerra NP [address] [place], [place] [phone] Pre-visit Planning (HDF unscheduled.) Social History Tobacco Use Types Packs/Day Years Used Date Smoking Tobacco: Every Day Cigarettes Alcohol Use Standard Drinks/Week Comments Never 0 (1 standard drink = 0.6 oz pur e alcohol) Depression Answer Date Recorded Patient Health Questionnaire-9 Score 0 08/07/2024 Patient Health Questionnaire-9 Score 0 08/07/2024 Last PHQ-9: Questionnaire Data Not on file 0 08/07/2024 Housing Stability Answer Date Recorded What is your housing situation today? I have housing today, but I am worried about losing housing in the future 08/22/[address] you li ve. Do you have problems with any of the following? None of the above 08/22/2024 Food Insecurity Answer Date Recorded Within the past 12 months, y ou worried that your food would run out before you got money to buy more: Sometimes True 2024 Within the past 12 months,th e food you bought just didn't last and you didn't have enough money to get more: Sometimes True 08/22/2024 Transportation Answer Date Recorded In the past 12 months, has l ack of transportation kept you from medical appts, meetings, work or from getting things needed for daily living? No 03/07/2024 Utilities Answer Date Recorded In the past 12 months, has t he electric, gas, oil or water company threatened to shut off services in your home? No 03/07/2024 Depression Answer Date Recorded Patient Health Questionnaire-2 Score 0 08/07/2024 Internet Access Answer Date Recorded Internet Access Q1 Yes 03/07/2024 Internet Access Q2 Not on file 03/07/2024 Comments Unknown Sex and Gender Information Value Date Recorded Sex Assigned at Female 02/20/2022 10:40 AM EDT Legal Sex Female 10:40 AM EDT Gender Identity Female 02/20/2022 10:40 AM EDT Sexual Orientation Choose not to disclose 2021 10:40 AM EDT documented as of this encounter Miscellaneous Notes * Significant Event - Ruth Gleason - 11/03/2024 11:04 AM EDT 11/03/24 1058 Hospital Discharges and Admission for [facility] Type of Visit Hospital Admission Date of Admission/Visit 10/28/24 Date of Discharge 10/31/24 Facility [facility] Diagnosis Pneumonia Disposition Discharged Home Follow-Up Actions Follow-Up Needed Provider appointment Follow-Up Outcome Left Voicemail Initial Contact Date 11/03/24 KELVIN Pereyra placing call to offer patient with an HDF appointment with provider. No answer at this time. Patient's name and were not confirmed. CC left detailed message educating patient on importance of following up with provider following an inpatient admission. Provided contact information requesting a call back in order to schedule the HDF appointment. Patient educated via voicemail on extended clinic hours on Mondays and Wednesdays, and Walk-In Urgent Care Located in [facility]. Patient provided with after-hours line for [place], , which offer night time triage service and option to transfer to contracts representative provider if needed. CC scanned discharge summary into patient's chart. CC will place additional outreach call within 2-5 business days. documented in this encounter Plan of Treatment Upcoming Encounters Date Type Department Care Team (Late st Contact Info) Description 11/14/2024 3:00 PM EDT Telemedicine [facility] [address] [place] [id number] Shaina Jenkins PharmD [address] [place] [address] 11/20/2024 9:30 AM EDT Office Visit [address] [address] Chelsea Boyce MD [address] [place] [address] 12/23/2024 1:00 PM EDT Procedure Visit [address] [address] Indira Becerra NP [address] [place] [address] documented as of this encounter Visit Diagnoses Not on filedocumented in this encounter Additional Health Concerns Assessment Noted Time PHQ-9 Depression Total Score: 0 08/08/19 10:55 AM EDT documented as of this encounter Care Teams Supervisor Marble Relationship Specialty Start Date End Date Indira Becerra NP [address] [place] [address] PCP - General Family Medicine 12/04/23 Rossana Ceja, TIMO [address] [place] [id number] Tattoo IdentifierProject Planner 08/07/24 documented as of this encounter
[2024-11-07 10:35] LABS: Hematocrit 40.8 % (37.0-47.0); Hemoglobin 13.8 g/dl (12.0-16.0); Mean Corpuscular HGB Conc 33.8 g/dl (31.0-35.0); Mean Corpuscular Hemoglobin 28.0 pg (27.0-33.0); Mean Corpuscular Volume 82.8 fL (80.0-98.0); NRBC Abs Auto 0.000 X10*3/uL (0.0-0.012); NRBC Pct Auto 0.0 /100WBC (0.0-0.2); Platelet Count 638 X10*3/uL (160-400); Red Blood Count 4.93 X10*6/uL (4.20-5.50); White Blood Count 14.4 X10*3/uL (4.8-10.8)
[2024-11-07 11:25] LABS: Anion Gap 13 (12-20); Blood Urea Nitrogen 14 mg/dL (9-16); Calcium 9.2 mg/dL (8.4-10.2); Carbon Dioxide 24 mmol/L (22-29); Chloride 104 mmol/L (96-108); Estimated Glomerular Filt Rate > 60; Potassium 3.8 mmol/L (3.3-5.1); Sodium 137 mmol/L (135-145)
== END 2024-11-07 08:59 | disposition home or self-care (01) ==
LOC: HO.LAB 08:58
PROVIDERS: PCP Nurse Practitioner Family; Visit Provider Internal Medicine
DX: J18.9 Pneumonia, unspecified organism (principal); E11.9 Type 2 diabetes mellitus without complications
CPT/HCPCS: 36415; 80048; 85027